=== PATIENT | male | born 1975 | race Caucasian/White ===

== ENCOUNTER 2020-05-28 02:26 | Observation (INO) | payer OTHER, MEDICAID, SELFPAY ==
[2020-05-28] VITALS (154 sets, daily range): BP systolic 77–223; BP diastolic 24–133; PULSE 54–121; RESP 0–26; TEMP 36–36.5; O2SAT 97–100
[2020-05-28] MEDS: Naloxone 0.4 MG/ML VIAL (02:14)
--- NOTE | 2020-05-28 02:15 | DI.CT_ITS ---
EXAM: CT CHEST/ABD/PEL W TECHNIQUE: CT examination of the chest, abdomen, and pelvis was performed with bolus infusion of 100 cc of Omnipaque 350. COMPARISON: No exams were available for comparison FINDINGS: There is no evidence of a thoracic vascular injury. The lungs are clear. No pneumothorax or pleural effusion. No mediastinal hematoma. No adenopathy in the chest. Tracheobronchial tree appears intact. The liver, spleen, and pancreas appear normal. Gallbladder and bile ducts are normal. Adrenals and kidneys are unremarkable. No evidence of urinary tract injury or obstruction. No abdominal or pelvic vascular injury seen. No abdominal or pelvic adenopathy. No significant abdomi nal wall hernia or hematoma. No evidence of bowel injury. IMPRESSION: No evidence of acute injury of the chest, abdomen, or pelvis. RADIATION DOSE DELIVERED: 1,300.97mGy.cm Total DLP 1,300.97mGy.cm Total DLP DATA REPOSITORY: All CT scans at this facility are submitted to the National Radiology Data Registry (NRDR) Dose Index Registry (DIR) with the [employer] ([employer]). RADIATION OPTIMIZATION: All CT scans at this facility use at least one of these dose optimization te chniques: automated exposure control; mA and/or kV adjustment per patient size (includes targeted exa ms where dose is matched to clinical indication); or iterative reconstruction.
--- NOTE | 2020-05-28 02:15 | DI.CT_ITS ---
EXAM: CT HEAD WO CLINICAL HISTORY: altered, gcs 4. TECHNIQUE: Imaging Protocol: Axial computed tomography images with coronal and sagittal reformatted images were created and reviewed COMPARISON: No exams were available for comparison FINDINGS: The ventricular system is normal in appearance. No evidence of acute intracranial hemorrhage, mass effect, or midline shift. The orbital structures are unremarkable. The temporal bone structures appear intact. Calvarium: Normal. Visualized Paranasal sinuses/Mastoids: Clear. IMPRESSION: Normal cranial CT. RADIATION DOSE DELIVERED: 788.54mGy.cm Total DLP 788.54mGy.cm Total DLP DATA REPOSITORY: All CT scans at this facility are submitted to the National Radiology Data Registry (NRDR) Dose Index Registry (DIR) with the [employer] ([employer]). RADIATION OPTIMIZATION: All CT scans at this facility use at least one of these dose optimization te chniques: automated exposure control; mA and/or kV adjustment per patient size (includes targeted exa ms where dose is matched to clinical indication); or iterative reconstruction.
--- NOTE | 2020-05-28 02:15 | RT.EKG_ITS ---
APPROVED REPORT Exam: Resting ECG Patient Location: E HR:105 bpm ECG Measurements Heart Rate 105 AXIS MS 138 P 69 QRSd 98 QRS 76 QT 346 T 54 QTc 457 Conclusion EKG 2: 55 Rate 105, sinus tachycardia, intervals normal, no significant ST elevations or depressions, no eviden ce of STEMI. No evidence of dysrhythmia or interval abnormality.
--- NOTE | 2020-05-28 02:15 | DI.RAD_ITS ---
EXAM: XR PORTABLE CHEST AP POST LINE CLINICAL HISTORY: post intubation TECHNIQUE: COMPARISON: No exams were available for comparison FINDINGS: Supine AP chest. 0237 hours. Endotracheal tube 6.5 cm above the reno. Grossly well expanded lai r lungs. Cardiac size within normal limits. IMPRESSION: RADIATION DOSE DELIVERED: Total DLP
[2020-05-28] MEDS: PROPOFOL 1,000 MG/100 ML BTL 11 MG (02:23)
[2020-05-28] MEDS: Normal Saline 1,000 ML 1000 ML IV (02:40)
--- NOTE | 2020-05-28 02:40 | NUR.NOTE ---
Nursing Note: Trauma Note: 0152 - arrived via [facility] 0159 - IV attempt x 2 0202 - IO Placed in right tibia 0206 - Patient placed in restraints 0210 - IV attempt x 1 0214 - Narcan 0.4 mg via IO 0215 - Etomidate 20 mg via IO 0216 - Rocurodium 100 mg via IO 0219 - Intubation successful, 22 j luis at the teeth 0221 - Propofol bolus 40 mg via IO 0223 - Propofol drip 25 mg via IO.
--- NOTE | 2020-05-28 02:44 | DI.VRAD_ITS ---
PROCEDURE INFORMATION: Exam: XR Chest, 1 View Exam date and time: 05/28/2020 2:36 AM Age: 44 years old Clinical indication: Device placement; Other: Post intubation TECHNIQUE: Imaging protocol: XR of the chest Views: 1 view. COMPARISON: No relevant prior studies available. FINDINGS: External pacing device noted. ETT tip 6.5 cm above the reno Lungs: Mild chronic interstitial prominence. No consolidation. Pleural space: Unremarkable. No pleural effusion. No pneumothorax. Heart/Mediastinum: Unremarkable. No cardiomegaly. Bones/joints: Unremarkable. IMPRESSION: No acute findings. Endotracheal tube tip 6.5 cm above the reno Dictated and Authenticated by: Clifford Blakely MD. Ordering:KAYCE Hammond MD
[2020-05-28] MEDS: PROPOFOL 1,000 MG/100 ML BTL 11.25 MG IVPB (02:47)
--- NOTE | 2020-05-28 02:57 | W.ED.GENAD ---
Discharge Plan Disposition Patient Disposition: [facility] INPATIENT Condition: Stable Discharge Details Chief Complaint: OD/Poison Clinical Impression: Altered mental status, Obtundation, Acute respiratory failure, Illicit drug use Primary Care Provider: None,None ED Provider: Manish Hall Medical Decision Making Upon my evaluation, this patient had a high probability of imminent or life-threatening deterioration, which required my direct attention, intervention, and personal management. I have personally provided 45 minutes of critical care time exclusive of time spent on separately billable procedures. Time includes review of laboratory data, radiology results, discussion with consultants, and monitoring for potential decompensation. Interventions were performed as documented. This is a 44-year-old male who is unknown to our emergency department. Initially he was brought in by EMS for evaluation of altered mental status at the [facility]. GCS was around 4 upon their arrival, limited respirations assisted by bag valve mask. He was brought in for further evaluation. Upon assessment here in the ED he was continued to noted to have a GCS of 4, painful stimuli including sternal rub, multiple other forms of painful stimuli did not evoke any movement or response whatsoever. Corneal reflex was intact. Respirations were present but notably slow. The patient did have an intermittent gag reflex, however he already had 1 episode of vomiting per EMS. Out of concern for his altered mental status, potential for airway compromise, and inability for good protection of the airway the decision was made to intubate the patient. Fortunately no IV could be established by paramedics or nursing staff secondary to what we now note to be the patient's history of IV drug use. An IO was placed, which elicited a notable response from the patient, he demonstrated notable flexion and extension without focal posturing, and nonsensical screams and noises. Patient continued to be unable to answer any questions, and there was no response to our verbal direction or stimuli whatsoever. Immediately once the IO was placed he rescinded back down to his GCS of 4. The patient was then successfully intubated with no complication or particular negative challenge. However post intubation the patient did demonstrate continued spontaneous but non-focus movements. Propofol, fentanyl, and Versed were used to maintain sedation. Neurologic exam is minimal but continued to demonstrate responsive pupils, intermittent movements, no nuchal rigidity, or other abnormality. Uncertain as to the exact etiology of the patient's symptoms however in hindsight we did eventually get records back from [facility], and upon review of the records it seems that the patient was arrested by [facility], and just immediately before rest he took an 8 ball and then during [facility] custody he transitioned from a normal communicative state to violent, flailing, and non-redirectable behavior. Patient was brought to [facility] where he was given IV IV benzodiazepines for management, eventually his symptomatology settled down after a notable amount of spitting thrashing and violent behavior. Laboratory work-up appears benign upon review aside from mild elevation in CPK in total he received 5 mg of midazolam and 2 mg of Ativan. He was then transferred back to the intermediate system, where there he was noted after he was brought back to a sound to be altered and obtunded. No further history is available at this time. Differential is broad, but includes intoxication from drugs, less likely bacterial or septic etiology, acute intercranial processes on the differential as well. EKG unremarkable and it appears unlikely to be associated with any overdose from TCAs. We will continue to rehydrate, monitor closely and reassess. 4 AM Skilled Nursing staff now state that patient may have had some seizure-like movement when he first came there. No history of seizures from what we can tell from review of [facility]'s records. However exam shows no tongue bite lesions or other abnormalities. 4:50 AM Laboratory work-up is returned relatively unremarkable, lactate is elevated but likely secondary to the stress of the situation, ESR and CRP are both normal notably decreasing likelihood of infectious etiology. Troponin is benign. TSH normal. Urine drug screen is positive for amphetamines and benzos. Alcohol negative. Salicylates and acetaminophen are negative. Uncertain to the exact etiology of the patient's current symptomatology. May be related to a potential seizure from what he previously ingested but I feel this less likely especially given all the benzodiazepines it was given to him at [facility]. Infectious etiology unlikely. CT scan of the head is negative for acute process, CT scan of the chest and abdomen are negative as well. At this point with the patient's altered mental status and obtundation we will keep the patient intubated, admit him to the ICU for further management. Currently he remains hemodynamically stable. I discussed the case with Dr. High, he will admit the patient for further management. I have extensively reviewed the treatment plan with the patient. I have addressed all patient concerns at this time. I have also discussed the plan with the admitting physician and they agree with the current assessment and plan and have agreed to assume responsibility for the patient. All parties demonstrate verbal understanding and agreement with our assessment and plan at this time. EKG 2: 55 Rate 105, sinus tachycardia, intervals normal, no significant ST elevations or depressions, no evidence of STEMI. No evidence of dysrhythmia or interval abnormality. FINDINGS: Brain: Mild volume loss No hemorrhage. Unremarkable white matter. No mass effect. Ventricles: Normal. No ventriculomegaly. Bones/joints: Unremarkable. No acute fracture. Sinuses: Minimal mucosal thickening. No fluid levels. Mastoid air cells: Visualized mastoid air cells are well aerated. Soft tissues: Mild right frontal scalp swelling IMPRESSION: No acute intracranial hemorrhage noted Thank you for allowing us to participate in the care of your patient. Dictated and Authenticated by: Clifford Blakely MD 05/28/2020 4:26 AM Eastern Time ([place] & [place]) FINDINGS: Endotracheal tube tip 6 cm above the reno Lungs: Minimal basilar subsegmental atelectasis. No consolidation. No masses. Pleural space: Unremarkable. No pneumothorax. No pleural effusion. Heart: Unremarkable. No cardiomegaly. No pericardial effusion. Aorta: Unremarkable. No aortic aneurysm. Lymph nodes: Unremarkable. No enlarged lymph nodes. Bones/joints: Unremarkable. No acute fracture. Soft tissues: Unremarkable. IMPRESSION: No acute findings. Endotracheal tube tip 6 cm above the reno IMPRESSION: No solid organ injury detected Thank you for allowing us to participate in the care of your patient. Dictated and Authenticated by: Clifford Blakely MD 05/28/2020 4:25 AM Eastern Time ([place] & [place]) HPI General Date/Time Provider Initiated Documentation: 05/28/20 02:40. HPI Narrative: 44-year-old male who presents from intermediate altered and obtunded via EMS. No medical history is available at this time. Per EMS and intermediate staff he was recently at [facility] earlier today where he was arrested on? Drug charges? Subsequently medically cleared, and upon arrival/intake to the intermediate he was alert, but notably drowsy. He was sent to his cell, and was found to be relatively unresponsive but breathing for around 30 minutes. EMS arrived, began bagging the patient, and brought him to the ER immediately. Patient unable to answer any other questions at this time. No other known medical history or clinical historical components. General Stated Complaint: OD/Poison FLOR: 1 Review of Systems All systems reviewed & are unremarkable except as noted in HPI and below [facility] Social History Smoking/Tobacco Use Status: Unknown Substance use type: amphetamines Exam Narrative Exam Narrative: 1.Const: Well-nourished, Well-developed, appearing stated age 2.Eyes: PERRL, no conjunctival injection, and symmetrical lids. No pinpoint pupils corneal reflex intact, 3.ENT: Atraumatic external nose and ears. Moist MM. Neck: Symmetric, trachea midline, No thyromegaly. No nuchal rigidity, or clinical evidence of meningismus. 4.CVS: +S1/S2, No murmurs or gallops. Peripheral pulses 2+ and equal in all extremities. Brisk capillary refill in all extremities. 5.RESP: Notably decreased respiratory effort, occasional intermittent breaths are noted,. Clear to auscultation bilaterally. No wheezes rales or rhonchi 6.GI: Soft, Nontender/Nondistended, No hepatosplenomegaly. No guarding or rebound. 7.MSK: Normocephalic/Atraumatic, Extremities w/o deformity or ttp No cyanosis or clubbing, Normal movement of all extremities 8.Skin: Warm, Dry. No rashes or lesions. 9.Neuro: Obtunded, notably nonresponsive to sternal rub, or any other stimuli except for intraosseous application. GCS is 5, with flexion to pain only, however occasionally he will make incomprehensible sounds which would elevate his GCS to a 6 intermittently. 10.Psych: (Altered, GCS of 5-6 Course Vital Signs Vital signs: Vital Signs Temperature 36.4 C L 05/28/20 02:30 Pulse 115 H 05/28/20 02:30 Respiratory Rate 14 05/28/20 02:30 Blood Pressure 195/107 H 05/28/20 02:30 Pulse Oximetry 99 05/28/20 02:30 Temperature 36.4 C L 05/28/20 02:30 Temperature Source Tympanic 05/28/20 02:30 Pulse 115 H 05/28/20 02:30 Respiratory Rate 14 05/28/20 02:30 Blood Pressure 195/107 H 05/28/20 02:30 Pulse Oximetry 99 05/28/20 02:30 End Tidal Co2 54 05/28/20 02:30 Pain Level 0 05/28/20 02:30 Lab/Test Results Lab/Test Results: 05/28/20 02:23 Blood Blood Culture - Pending 05/28/20 02:23 Blood Blood Culture - Pending Procedures Intubation Time out performed: Yes sedative: Etomidate Mg Given: 20 paralytic: Rocuronium Mg Given: 100 Laryngoscope: fiberoptic video scope ET Tube Size: 7.5 ET Tube Uncuffed: Yes Tube Secured Depth (cm): 22 Tube Secured Location: teeth Tube Placement Confirmation: visualized tube passing through cords, equal breath sounds bilaterally, no breath sounds over epigastrum and confirmation by capnometry Patient Tolerated Procedure: well Intubation Complications: none Restraint Face to Face Time of Face to Face Face to Face: Time of Face to Face: 02:29 Patient's Immediate Situation Requiring Restraints/Seclusion: Harm to Patient Patient Response to Restraints: Tolerating without Problems Patient's Medical & Behavioral Condition: With administration of medication through the IO patient would flail
[2020-05-28] MEDS: fentaNYL 1,000 MCG in Normal Saline 80 ML 7.5 MCG IV (03:00)
[2020-05-28 03:09] LABS: Abs Immature Grans 0.02 10^3/uL (0.0-0.06); Absolute Basophil Count 0.02 10^3/uL (0.0-0.2); Absolute Eosinophil Count 0.02 10^3/uL (0.0-0.7); Absolute Lymphocyte Count 1.46 10^3/uL (1.2-3.4); Absolute Monocyte Count 0.57 10^3/uL (0.1-0.8); Absolute Neutrophil Count 5.91 10^3/uL (1.2-6.7); Basophils % 0.3; Eosinophils % 0.3; HCT 42.9 % (40.0-50.0); HGB 14.3 g/dL (13.5-17.5); Immature Grans % 0.3; Lymphocytes % 18.3; MCH 29.7 pg (27.0-33.0); MCHC 33.3 % (32.0-36.0); MCV 89.2 fL (80-95); MPV 9.5 fL (8.0-11.0); Monocytes % 7.1; Neutrophils % 73.7; Nucleated RBC 0 %; Platelet Count 179 10^3/uL (130-400); RBC 4.81 10^6/uL (4.36-5.78); RDW-SD 42.5 fL
[2020-05-28] MEDS: MIDAZOLAM 50 MG in Normal Saline 90 ML 15 MG IV (03:22)
[2020-05-28 03:23] LABS: PTT Activated 23.4 sec (21.0-31.4); Prothrombin Time 10.2 sec (9.3-11.0)
[2020-05-28 03:25] LABS: BE 2 mmol/L (-2-3); HCO3 28 mmol/L (22-26); pCO2 49 mmHg (35-45); pH 7.36 (7.35-7.45)
[2020-05-28 03:27] LABS: FIO2 60 %; Site Right Radial; pO2 > 550 mmHg (80-105); sO2 > 99 % (95-98)
[2020-05-28] MEDS: Rocuronium 50 MG/5 ML SYR 100 MG IVP (03:34)
[2020-05-28 04:03] LABS: ESR 6 mm/hr (0-15)
[2020-05-28 04:05] LABS: Salicylate < 2.8 mg/dL (2.8-20.0)
[2020-05-28 04:06] LABS: Acetaminophen < 2 ug/mL (10-30)
[2020-05-28 04:08] LABS: ALT 69 U/L (16-63); AST 69 U/L (15-37); Albumin 4.1 g/dL (3.4-5.0); Alkaline Phosphatase 54 U/L (46-116); Anion Gap 8.2 mmol/L (3-11); BUN 20 mg/dL (7-18); Bilirubin, Total 0.7 mg/dL (0.2-1.0); C-Reactive Protein 0.17 mg/dL (0.0-0.3); CO2 28.8 mmol/L (21.0-32.0); CREATININE 1.05 mg/dL (0.70-1.30); Calcium 8.3 mg/dL (8.5-10.1); Chloride 102 mmol/L (98-107); Glucose 139 mg/dL (74-106); Potassium 3.6 mmol/L (3.5-5.1); Sodium 139 mmol/L (136-145); TSH (W/Ref FT4) 1.05 uIU/mL (0.36-3.74); Total Protein 7.7 g/dL (6.4-8.2); Troponin I < 0.05 ng/mL (<0.06)
[2020-05-28 04:20] LABS: ETHANOL BLOOD < 3.0 mg/dL (<3)
--- NOTE | 2020-05-28 04:25 | DI.VRAD_ITS ---
PROCEDURE INFORMATION: Exam: CT Chest With Contrast Exam date and time: 05/28/2020 3:54 AM Age: 44 years old Clinical indication: Screening exam; Other screening; Patient HX: Altered, inmate, question overdose TECHNIQUE: Imaging protocol: Computed tomography of the chest with intravenous contrast. COMPARISON: No relevant prior studies available. FINDINGS: Endotracheal tube tip 6 cm above the reno Lungs: Minimal basilar subsegmental atelectasis. No consolidation. No masses. Pleural space: Unremarkable. No pneumothorax. No pleural effusion. Heart: Unremarkable. No cardiomegaly. No pericardial effusion. Aorta: Unremarkable. No aortic aneurysm. Lymph nodes: Unremarkable. No enlarged lymph nodes. Bones/joints: Unremarkable. No acute fracture. Soft tissues: Unremarkable. IMPRESSION: No acute findings. Endotracheal tube tip 6 cm above the reno PROCEDURE INFORMATION: Exam: CT Abdomen And Pelvis With Contrast Exam date and time: 05/28/2020 3:54 AM Age: 44 years old Clinical indication: Screening exam; Other screening; Patient HX: Altered, inmate, question overdose TECHNIQUE: Imaging protocol: Computed tomography of the abdomen and pelvis with intravenous contrast. COMPARISON: No relevant prior studies available. FINDINGS: Liver: Normal. No mass. Gallbladder and bile ducts: Normal. No calcified stones. No ductal dilation. Pancreas: Normal. No ductal dilation. Spleen: Normal. No splenomegaly. Adrenals: Normal. No mass. Kidneys and ureters: Normal. No hydronephrosis. Stomach and bowel: Unremarkable. No obstruction. No mucosal thickening. Appendix: No evidence of appendicitis. Intraperitoneal space: Unremarkable. No free air. No significant fluid collection. Vasculature: Unremarkable. No abdominal aortic aneurysm. Lymph nodes: Unremarkable. No enlarged lymph nodes. Bladder: Unremarkable as visualized. Reproductive: Unremarkable as visualized. Bones/joints: Unremarkable. No acute fracture. Soft tissues: Unremarkable. IMPRESSION: No solid organ injury detected Dictated and Authenticated by: Clifford Blakely MD. Ordering:KAYCE Hammond MD
--- NOTE | 2020-05-28 04:26 | DI.VRAD_ITS ---
PROCEDURE INFORMATION: Exam: CT Head Without Contrast Exam date and time: 05/28/2020 3:51 AM Age: 44 years old Clinical indication: Screening exam; Patient HX: Altered, gcs 4 TECHNIQUE: Imaging protocol: Computed tomography of the head without contrast. COMPARISON: No relevant prior studies available. FINDINGS: Brain: Mild volume loss No hemorrhage. Unremarkable white matter. No mass effect. Ventricles: Normal. No ventriculomegaly. Bones/joints: Unremarkable. No acute fracture. Sinuses: Minimal mucosal thickening. No fluid levels. Mastoid air cells: Visualized mastoid air cells are well aerated. Soft tissues: Mild right frontal scalp swelling IMPRESSION: No acute intracranial hemorrhage noted Dictated and Authenticated by: Clifford Blakely MD. Ordering:KAYCE Hammond MD
[2020-05-28 04:28] LABS: Bilirubin Negative (Negative); Blood Negative (Negative); Clarity Clear (Clear); Glucose Negative (Negative); Ketones 15 mg/dL (Negative); Leukocyte Esterase Negative (Negative); Nitrite Negative (Negative); Specific Gravity 1.025 (1.005-1.025); Urobilinogen 0.2 EU/dL (Up TO 0.2)
[2020-05-28 04:38] LABS: *AMPHETAMINES SCREEN URINE POSITIVE (Negative); *BARBITURATES SCREEN URINE Negative (Negative); *BENZODIAZEPINES SCREEN URINE POSITIVE (Negative); Cannabinoids THC Negative (Negative); Cocaine Screen,Urine Negative (Negative); METHADONE URINE SCREEN Negative (Negative); OPIATES URINE SCREEN Negative (Negative); Tricyclic Antidepressants Negative (Negative)
--- NOTE | 2020-05-28 04:46 | DI.RAD_ITS ---
EXAM: XR PORTABLE CHEST AP POST LINE CLINICAL HISTORY: for OG tube placement TECHNIQUE: COMPARISON: CR,XR XR PORTABLE CHEST AP POST LINE from 05/28/2020 FINDINGS: Supine AP chest at 0450 hours. NG tube noted in position. ET tube noted in position. Lungs are caryn ssly clear and well expanded. Cardiac size within normal limits. IMPRESSION: No evidence of acute process RADIATION DOSE DELIVERED: Total DLP
--- NOTE | 2020-05-28 04:58 | W.PM.HP.N ---
Date of service: 05/28/20 Time of Service: 04:58 Assessment and Plan Assessment and plan (1) Altered mental status: Status: Acute Assessment and plan: AMS due to some combination of drug ingestion, med side effects, possible post-ictal state (given report of possible seizure). No evidence of structural or infectious lesion. Will maintain on vent at present with current sedation regimen. Will taper down as clinical situation allows. Will decrease FIO2 <50%. History of Present Illness History of Present Illness Chief Complaint: change mental status Narrative: 44 male with h/o substance abuse; arrested by [facility] earlier. Took so called 8 ball, seen [facility] for agitated/violent behavior; given benzos and eventually d/c'ed to custodial. In [facility] became progressively obtunded, question of possible seizure activity, brought here; vomited x1 en route; in ER intubated for airway protection. Please see ER note for further details. Labs of note for normal CBC, benign chemistries save for minimal increase TAs; neg head CT and CXR, with ET tube in place; UDS + benzos and amphetamines; EKG unremarkable save for sinus tach. Sedated with propofol, versed and fentanyl qtts Admitted for further management. Review of Systems Unobtainable due to mental status [facility] Social History Smoking/Tobacco Use Status: Unknown Substance use type: amphetamines Meds Home Medications and Allergies Home Medications Medication Instructions Recorded Confirmed Type Unknown [Unable to Obtain] 05/28/20 05/28/20 History Allergies Allergy/AdvReac Type Severity Reaction Status Date / Time Unable to Assess Allergy Unverified 05/28/20 05:16 Exam Narrative Exam Narrative: 141/93, 78, 36.4, 16 (IMV), 99% on 60% O2. HEENT atraumatic; neck supple; lungs clear, bilateral breath sounds; heart RRR w/o MRG; abdomen soft w/o HSM and nontender; unremarkable; rectal deferred; extremikties w/o edema, IO line on right; neuro unresponsive/ sedated Results Labs Result diagrams: 05/28/20 03:00 05/28/20 03:00 Labs: Laboratory Results - last 24 hr 05/28/20 05/28/20 05/28/20 03:00 03:00 03:00 WBC RBC Hgb Hct MCV MCH MCHC RDW Plt Count MPV Immature Gran % Neutrophils % Lymphocytes % Monocytes % Eosinophils % Basophils % Nucleated RBC % Absolute Neutrophils Absolute Lymphocytes Absolute Monocytes Absolute Eosinophils Absolute Basophils ESR PT INR APTT ABG Sample Site ABG pH ABG pCO2 ABG pO2 ABG HCO3 ABG Total CO2 ABG O2 Saturation ABG Base Excess Oxygen Liter Flow FiO2 Sodium 139 Potassium 3.6 Chloride 102 Carbon Dioxide 28.8 Anion Gap 8.2 BUN 20 H Creatinine 1.05 Estimated GFR/1.73 m2 >= 60.00 Glucose 139 H Lactate 2.6 H* Calcium 8.3 L Total Bilirubin 0.7 AST 69 H ALT 69 H Alkaline Phosphatase 54 Troponin I < 0.05 C-Reactive Protein 0.17 Total Protein 7.7 Albumin 4.1 TSH 1.05 Urine Color Urine Clarity Urine pH Ur Specific Milroy Urine Protein Urine Ketones Urine Blood Urine Nitrite Urine Bilirubin Urine Urobilinogen Ur Leukocyte Esterase Urine Glucose Salicylates < 2.8 Urine Opiates Screen Urine Methadone Screen Acetaminophen < 2 Ur Barbiturates Screen Ur Tricyclics Screen Ur Amphetamines Screen U Benzodiazepines Scrn Urine Cocaine Screen Ur THC Screen Ethyl Alcohol < 3.0 05/28/20 05/28/20 05/28/20 03:00 03:00 03:20 WBC 8.00 RBC 4.81 Hgb 14.3 Hct 42.9 MCV 89.2 MCH 29.7 MCHC 33.3 RDW 13.0 Plt Count 179 MPV 9.5 Immature Gran % 0.3 Neutrophils % 73.7 Lymphocytes % 18.3 Monocytes % 7.1 Eosinophils % 0.3 Basophils % 0.3 Nucleated RBC % 0 Absolute Neutrophils 5.91 Absolute Lymphocytes 1.46 Absolute Monocytes 0.57 Absolute Eosinophils 0.02 Absolute Basophils 0.02 ESR 6 PT 10.2 INR 1.0 APTT 23.4 ABG Sample Site Right radial ABG pH 7.36 ABG pCO2 49 H ABG pO2 > 550 H ABG HCO3 28 H ABG Total CO2 ABG O2 Saturation > 99 H ABG Base Excess 2 Oxygen Liter Flow Vt470/peep5/r15 FiO2 60 Sodium Potassium Chloride Carbon Dioxide Anion Gap BUN Creatinine Estimated GFR/1.73 m2 Glucose Lactate Calcium Total Bilirubin AST ALT Alkaline Phosphatase Troponin I C-Reactive Protein Total Protein Albumin TSH Urine Color Urine Clarity Urine pH Ur Specific Milroy Urine Protein Urine Ketones Urine Blood Urine Nitrite Urine Bilirubin Urine Urobilinogen Ur Leukocyte Esterase Urine Glucose Salicylates Urine Opiates Screen Urine Methadone Screen Acetaminophen Ur Barbiturates Screen Ur Tricyclics Screen Ur Amphetamines Screen U Benzodiazepines Scrn Urine Cocaine Screen Ur THC Screen Ethyl Alcohol 05/28/20 05/28/20 04:21 04:21 WBC RBC Hgb Hct MCV MCH MCHC RDW Plt Count MPV Immature Gran % Neutrophils % Lymphocytes % Monocytes % Eosinophils % Basophils % Nucleated RBC % Absolute Neutrophils Absolute Lymphocytes Absolute Monocytes Absolute Eosinophils Absolute Basophils ESR PT INR APTT ABG Sample Site ABG pH ABG pCO2 ABG pO2 ABG HCO3 ABG Total CO2 ABG O2 Saturation ABG Base Excess Oxygen Liter Flow FiO2 Sodium Potassium Chloride Carbon Dioxide Anion Gap BUN Creatinine Estimated GFR/1.73 m2 Glucose Lactate Calcium Total Bilirubin AST ALT Alkaline Phosphatase Troponin I C-Reactive Protein Total Protein Albumin TSH Urine Color Yellow Urine Clarity Clear Urine pH 7.0 Ur Specific Milroy 1.025 Urine Protein 30 H Urine Ketones 15 H Urine Blood Negative Urine Nitrite Negative Urine Bilirubin Negative Urine Urobilinogen 0.2 Ur Leukocyte Esterase Negative Urine Glucose Negative Salicylates Urine Opiates Screen Negative Urine Methadone Screen Negative Acetaminophen Ur Barbiturates Screen Negative Ur Tricyclics Screen Negative Ur Amphetamines Screen Positive A U Benzodiazepines Scrn Positive A Urine Cocaine Screen Negative Ur THC Screen Negative Ethyl Alcohol Last Vital Signs Temp 36.4 C L 05/28/20 02:30 Pulse 71 05/28/20 04:31 Resp 16 05/28/20 04:41 BP 141/93 H 05/28/20 04:31 Pulse Ox 99 05/28/20 04:40
--- NOTE | 2020-05-28 05:05 | DI.VRAD_ITS ---
PROCEDURE INFORMATION: Exam: XR Chest, 1 View Exam date and time: 05/28/2020 4:55 AM Age: 44 years old Clinical indication: Device placement; Patient HX: For og tube placement TECHNIQUE: Imaging protocol: XR of the chest Views: 1 view. COMPARISON: CT CHEST/ABD/PEL W 05/28/2020 3:54 AM FINDINGS: Endotracheal tube tip 7 cm above the reno Orogastric tube in the proximal gastric fundus/cardia External pacing device noted Lungs: Chronic interstitial prominence is grossly stable. No consolidation. Pleural space: No pleural effusion. No pneumothorax. Heart/Mediastinum: Grossly stable. Bones/joints: Unremarkable. IMPRESSION: Orogastric tube in the proximal stomach Otherwise, grossly stable radiographic appearance to the chest Dictated and Authenticated by: Clifford Blakely MD. Ordering:KAYCE Hammond MD
[2020-05-28 05:09] LABS: Bacteria Negative HPF (Negative); Crystals Negative HPF (Negative); Epithelial Cells Negative HPF (Negative); RBC Negative HPF (0-2); WBC 0-2 HPF (0-5)
[2020-05-28 05:10] LABS: C & S Indicated? No; Mucus Trace (Negative)
[2020-05-28] MEDS: PROPOFOL 1,000 MG/100 ML BTL 45 MG IVPB (06:59)
[2020-05-28] MEDS: MIDAZOLAM 50 MG in Normal Saline 90 ML 30 MG IV (07:15)
[2020-05-28] MEDS: MIDAZOLAM 50 MG in Normal Saline 90 ML 200 MG IV (07:24)
[2020-05-28] MEDS: fentaNYL 1,000 MCG in Normal Saline 80 ML 22.5 MCG IV (08:31)
--- NOTE | 2020-05-28 09:00 | PGE_ITS ---
Date of Service Date of service: 05/28/20 Time of Service: 09:00 Assessment and Plan Assessment and plan (1) Altered mental status: Status: Acute Assessment and plan: Altered mental status secondary to drug overdose along with high dose narcotic and benzodiazepine infusion. We will start Precedex drip and wean off the propofol drip. Goal will be to wean off the Precedex over the next 24 hours with a goal to extubate the patient. Continue supportive care in the interim. Qualifiers: Coma depth: Skinny coma 3-8 Coma timing: at hospital admission (2) Acute respiratory failure: Status: Acute Assessment and plan: Patient's acute respiratory failure is secondary to his drug overdose and his high need for sedation in the emergency department. We will wean off the propofol drip and start Precedex as noted above. There is no evidence for aspiration on his chest x-ray. Will monitor for any signs or symptoms of respiratory infection. Qualifiers: Respiratory failure complication: unspecified whether with hypoxia or hypercapnia Qualified Code(s): J96.00 - Acute respiratory failure, unspecified whether with hypoxia or hypercapnia (3) Illicit drug use: Status: Acute (4) Rhabdomyolysis: Status: Acute Assessment and plan: Creatine kinase was not checked last night but I ordered a stat level this morning and came back elevated at 1785. Patient is receiving IV fluids of normal saline 150 mL an hour. We will continue aggressive fluid hydration and monitor his renal function. Patient has a Meyer catheter is draining adequate amount of urine output. Subjective Subjective Interval history since last seen: Please see Dr. Manish Hall's emergency room notes as well as Dr. Raffy High's admission H&P for details. From my review of their notes as well as my interview with the corrections officers from [facility] police patient apparently was arrested on domestic violence charges in [place], [place] and shortly after his arrest the patient took an overdose with what is known as an 8 ball. This is a slang term for combination usually of cocaine and other substances however in this gentleman's case his urine drug screen was negative for cocaine but positive for amphetamines. Shortly after taking this overdose the patient became violently agitated and required emergency evaluation. Patient reportedly was taken to the emergency room at [facility] where he was treated with benzodiazepines to sedate him. Is unclear as to the timing of when he was arrested and when he was taken to [facility] as well as to the exact treatment he was given. Nevertheless he apparently was felt to be medically stable and was cleared for discharge from the emergency room and then was taken to [facility] to the [facility] correctional facility. Patient was there for a short time approximately 30 minutes and placed in a dry cell where he was observed and became somnolent and unresponsive. Apparently there was no loss of pulse or respirations although his respirations were shallow and EMS was called. Patient was given Narcan which had no effect on his responsiveness. He was brought to the emergency room where he was given further Narcan and attempts at resuscitation necessitated intubation and protection of his airway. Apparently at some point in time in our emergency room he became very agitated and required high-dose sedation. Upon my assumption of the patient's care this morning remains intubated and severely sedated. According to the day nurse he was on a Versed drip 200 Micrograms per kilogram per hour and was on a dipper Van drip at 111 mcg/kg/min and a fentanyl drip at 3 mcg/kg/h. His nurses since discontinued the Versed drip in the fentanyl drip and the patient remains on a dipper Van drip at 45 mcg/kg/min. Patient remains severely obtunded and not even arousable to noxious stimulation such as sternal rub. Blood pressures were a little on the lower side throughout the night in the 90s systolic but he is now 107/67. Rhythm is sinus rhythm rate of 67 bpm and his oxygen saturation is 100% on FiO2 21%. He is on assist control with a tidal volume of 470 mL and respiratory rate set at 15. PEEP is 5 cm. He does not appear to be breathing above the ventilator set rate. He has 1 peripheral IV insight and he has an intraosseous line in his right tibia. I have asked nursing staff to achieve a second peripheral line so we can remove the intraosseous line. If they are unable to get a second peripheral IV then either I would place a central line or ask surgery to place central line for me. This time the goal is to try to wean him off the propofol drip and put him on a Precedex drip and to sedate him to a RASS scale -1 working towards extubation in the next 24 hours. Exam Narrative Exam Narrative: Obtunded not responsive to noxious stimuli. HEENT is atraumatic dry mucous membranes. Pupils midpoint reactive. Neck supple nontender palpation of the cervical spine no cervical adenopathy normal carotid pulses no bruising. Lungs are clear to auscultation Heart is regular rate and rhythm without murmur rub or gallop. Chest wall no deformities normal palpation of his ribs and sternum. Extremities he has tattoos on both arms. No visible bruising no lacerations. Lower extremities right tibia with IO device in place. No lacerations no deformities. Normal pedal pulses Neurologic exam obtunded not responsive to noxious stimulation. Objective Objective Clinical Data: Abnormal lab results 05/28/20 05/28/20 05/28/20 Range/Units 03:00 03:00 03:20 ABG pCO2 49 H (35-45) mmHg ABG pO2 > 550 H (80-105) mmHg ABG HCO3 28 H (22-26) mmol/L ABG O2 Saturation > 99 H (95-98) % BUN 20 H (7-18) mg/dL Glucose 139 H (74-106) mg/dL Lactate 2.6 H* (0.6-1.4) mmol/L Calcium 8.3 L (8.5-10.1) mg/dL AST 69 H (15-37) U/L ALT 69 H (16-63) U/L Urine Protein (Negative) mg/dL Urine Ketones (Negative) mg/dL Ur Amphetamines Screen (Negative) U Benzodiazepines Scrn (Negative) 05/28/20 05/28/20 Range/Units 04:21 04:21 ABG pCO2 (35-45) mmHg ABG pO2 (80-105) mmHg ABG HCO3 (22-26) mmol/L ABG O2 Saturation (95-98) % BUN (7-18) mg/dL Glucose (74-106) mg/dL Lactate (0.6-1.4) mmol/L Calcium (8.5-10.1) mg/dL AST (15-37) U/L ALT (16-63) U/L Urine Protein 30 H (Negative) mg/dL Urine Ketones 15 H (Negative) mg/dL Ur Amphetamines Screen Positive A (Negative) U Benzodiazepines Scrn Positive A (Negative) Vital Signs Temperature 36.5 C 05/28/20 06:36 Temperature Source Temporal Artery Scan 05/28/20 06:36 Pulse 85 05/28/20 06:36 Pulse 74 05/28/20 05:31 Respiratory Rate 15 05/28/20 06:36 Respiratory Effort 05/28/20 06:36 Blood Pressure 100/74 05/28/20 06:36 Blood Pressure Mean 82 05/28/20 06:36 Blood Pressure Position Supine 05/28/20 06:36 Pulse Oximetry 100 05/28/20 06:36 Respiratory End-tidal CO2 35 05/28/20 06:13 Oxygen Delivery Method Mechanical Ventilator 05/28/20 06:36 Oxygen Flow Rate 0 05/28/20 06:36 Fraction of Inspired Oxygen (FIO2) 21 05/28/20 06:36 End Tidal Co2 54 05/28/20 02:30 Pain Level 0 05/28/20 06:36 Intake & Output 05/27/20 05/27/20 05/28/20 11:59 23:59 11:59 Intake Total 337.750 / 337.750 Balance 337.750 / 337.750 Weight 75 kg Intake: IV 337.750 / 337.750 Other: Urine Color Yellow Urine Appearance Clear Comment intubated and sedated Laboratory Results WBC 8.00 10^3/uL (4.4-10.8) 05/28/20 03:00 RBC 4.81 10^6/uL (4.36-5.78) 05/28/20 03:00 Hgb 14.3 g/dL (13.5-17.5) 05/28/20 03:00 Hct 42.9 % (40.0-50.0) 05/28/20 03:00 MCV 89.2 fL (80-95) 05/28/20 03:00 MCH 29.7 pg (27.0-33.0) 05/28/20 03:00 MCHC 33.3 % (32.0-36.0) 05/28/20 03:00 RDW 13.0 % (11.8-14.1) 05/28/20 03:00 Plt Count 179 10^3/uL (130-400) 05/28/20 03:00 MPV 9.5 fL (8.0-11.0) 05/28/20 03:00 Immature Gran % 0.3 05/28/20 03:00 Neutrophils % 73.7 05/28/20 03:00 Lymphocytes % 18.3 05/28/20 03:00 Monocytes % 7.1 05/28/20 03:00 Eosinophils % 0.3 05/28/20 03:00 Basophils % 0.3 05/28/20 03:00 Nucleated RBC % 0 % 05/28/20 03:00 Absolute Neutrophils 5.91 10^3/uL (1.2-6.7) 05/28/20 03:00 Absolute Lymphocytes 1.46 10^3/uL (1.2-3.4) 05/28/20 03:00 Absolute Monocytes 0.57 10^3/uL (0.1-0.8) 05/28/20 03:00 Absolute Eosinophils 0.02 10^3/uL (0.0-0.7) 05/28/20 03:00 Absolute Basophils 0.02 10^3/uL (0.0-0.2) 05/28/20 03:00 ESR 6 mm/hr (0-15) 05/28/20 03:00 PT 10.2 sec (9.3-11.0) 05/28/20 03:00 INR 1.0 (0.9-1.1) 05/28/20 03:00 APTT 23.4 sec (21.0-31.4) 05/28/20 03:00 ABG Sample Site Right radial 05/28/20 03:20 ABG pH 7.36 (7.35-7.45) 05/28/20 03:20 ABG pCO2 49 mmHg (35-45) H 05/28/20 03:20 ABG pO2 > 550 mmHg (80-105) H 05/28/20 03:20 ABG HCO3 28 mmol/L (22-26) H 05/28/20 03:20 ABG Total CO2 mmol/L (23-27) 05/28/20 03:20 ABG O2 Saturation > 99 % (95-98) H 05/28/20 03:20 ABG Base Excess 2 mmol/L (-2-3) 05/28/20 03:20 Oxygen Liter Flow Vt470/peep5/r15 L 05/28/20 03:20 FiO2 60 % 05/28/20 03:20 Sodium 139 mmol/L (136-145) 05/28/20 03:00 Potassium 3.6 mmol/L (3.5-5.1) 05/28/20 03:00 Chloride 102 mmol/L (98-107) 05/28/20 03:00 Carbon Dioxide 28.8 mmol/L (21.0-32.0) 05/28/20 03:00 Anion Gap 8.2 mmol/L (3-11) 05/28/20 03:00 BUN 20 mg/dL (7-18) H 05/28/20 03:00 Creatinine 1.05 mg/dL (0.70-1.30) 05/28/20 03:00 Estimated GFR/1.73 m2 >= 60.00 (mL/min/1.73m2) 05/28/20 03:00 Glucose 139 mg/dL (74-106) H 05/28/20 03:00 Lactate 1.0 mmol/L (0.6-1.4) 05/28/20 08:38 Calcium 8.3 mg/dL (8.5-10.1) L 05/28/20 03:00 Total Bilirubin 0.7 mg/dL (0.2-1.0) 05/28/20 03:00 AST 69 U/L (15-37) H 05/28/20 03:00 ALT 69 U/L (16-63) H 05/28/20 03:00 Alkaline Phosphatase 54 U/L (46-116) 05/28/20 03:00 Troponin I < 0.05 ng/mL (<0.06) 05/28/20 03:00 C-Reactive Protein 0.17 mg/dL (0.0-0.3) 05/28/20 03:00 Total Protein 7.7 g/dL (6.4-8.2) 05/28/20 03:00 Albumin 4.1 g/dL (3.4-5.0) 05/28/20 03:00 TSH 1.05 uIU/mL (0.36-3.74) 05/28/20 03:00 Urine Color Yellow (Yellow) 05/28/20 04:21 Urine Clarity Clear (Clear) 05/28/20 04:21 Urine pH 7.0 (5-8) 05/28/20 04:21 Ur Specific Benedict 1.025 (1.005-1.025) 05/28/20 04:21 Urine Protein 30 mg/dL (Negative) H 05/28/20 04:21 Urine Ketones 15 mg/dL (Negative) H 05/28/20 04:21 Urine Blood Negative (Negative) 05/28/20 04:21 Urine Nitrite Negative (Negative) 05/28/20 04:21 Urine Bilirubin Negative (Negative) 05/28/20 04:21 Urine Urobilinogen 0.2 EU/dL (Up TO 0.2) 05/28/20 04:21 Ur Leukocyte Esterase Negative (Negative) 05/28/20 04:21 Urine RBC Negative HPF (0-2) 05/28/20 04:21 Urine WBC 0-2 HPF (0-5) 05/28/20 04:21 Ur Epithelial Cells Negative HPF (Negative) 05/28/20 04:21 Urine Crystals Negative HPF (Negative) 05/28/20 04:21 Urine Bacteria Negative HPF (Negative) 05/28/20 04:21 Urine Mucus Trace (Negative) 05/28/20 04:21 Ur Culture Indicated? No 05/28/20 04:21 Urine Glucose Negative mg/dL (Negative) 05/28/20 04:21 Salicylates < 2.8 mg/dL (2.8-20.0) 05/28/20 03:00 Urine Opiates Screen Negative (Negative) 05/28/20 04:21 Urine Methadone Screen Negative (Negative) 05/28/20 04:21 Acetaminophen < 2 ug/mL (10-30) 05/28/20 03:00 Ur Barbiturates Screen Negative (Negative) 05/28/20 04:21 Ur Tricyclics Screen Negative (Negative) 05/28/20 04:21 Ur Amphetamines Screen Positive (Negative) A 05/28/20 04:21 U Benzodiazepines Scrn Positive (Negative) A 05/28/20 04:21 Urine Cocaine Screen Negative (Negative) 05/28/20 04:21 Ur THC Screen Negative (Negative) 05/28/20 04:21 Ethyl Alcohol < 3.0 mg/dL (<3) 05/28/20 03:00
[2020-05-28 09:07] LABS: BE 1 mmol/L (-2-3); HCO3 26 mmol/L (22-26); pCO2 41 mmHg (35-45); pH 7.41 (7.35-7.45); pO2 97 mmHg (80-105); sO2 98 % (95-98); tCO2 23 mmol/L (23-27)
[2020-05-28 09:10] LABS: Site Right Radial
[2020-05-28] MEDS: Normal Saline 1,000 ML 150 ML IV ×2 (09:10→15:16)
[2020-05-28 09:11] LABS: Anion Gap 8.5 mmol/L (3-11); BUN 21 mg/dL (7-18); CO2 27.5 mmol/L (21.0-32.0); CREATININE 0.84 mg/dL (0.70-1.30); Calcium 8.5 mg/dL (8.5-10.1); Chloride 102 mmol/L (98-107); Glucose 99 mg/dL (74-106); Potassium 3.6 mmol/L (3.5-5.1); Sodium 138 mmol/L (136-145)
[2020-05-28 09:11] LABS: FIO2 21 %
--- NOTE | 2020-05-28 09:17 | INITIAL_ITS ---
- If Service Date Differs Date of service: 05/28/20 Time of Service: 09:17 Care Management Initial Assess REASON FOR HOSPITALIZATION:: Altered Mental Status, Drug OD PAST MEDICAL HISTORY/PAST SURGICAL HISTORY:: Medical History. Altered mental status, obtundation, acute respiratory failure, illicit drug use. PREVIOUS FUNCTIONAL STATUS/SOCIAL/FAMILY SUPPORTS:: Fahad is currently in custody at the [facility]. No further information is available as Fahad is intubated, and no contact is listed. CURRENT FUNCTIONAL STATUS:: Fahad is currently intubated to protect his airway. Per report, his acute respiratory failure is secondary to his drug overdose. He is being cared for in the ICU, with two guards by his side at all times. ADVANCE DIRECTIVES:: None on file. Has patient been provided with info about the portal/API?: No Did the patient sign up for the portal?: No CODE STATUS:: Full Code INSURANCE COVERAGE / FINANCIAL ISSUES:: [facility] PRIMARY CARE PHYSICIAN:: No PCP on file. POTENTIAL DISCHARGE NEEDS:: Evaluations for further needs, follow up appointments PATIENT/FAMILY EDUCATION NEEDS:: Review discharge instructions with pt and staff at [facility], discussion of self care needs including ask me three. ANTICIPATED BARRIERS TO DISCHARGE:: None identified at this time. TRANSPORTATION:: Anticipate police transport back to [facility]. PLAN:: Anticipate Fahad will [facility] once medica lly cleared. He will be transported by police/workforce specialist. He will follow up with his discharge plan of care. CM will continue to follow.
[2020-05-28 09:23] LABS: Troponin I 0.07 ng/mL (<0.06)
[2020-05-28 09:25] LABS: Creatine Kinase 1785 U/L (39-308)
[2020-05-28] MEDS: PROPOFOL 1,000 MG/100 ML BTL 20.25 MG IVPB ×2 (10:03→10:45)
[2020-05-28 12:32] LABS: Troponin I 0.07 ng/mL (<0.06)
[2020-05-28] MEDS: Normal Saline Flush 10 ML SYR IVP ×2 (14:50→19:24)
[2020-05-28 15:21] LABS: Anion Gap 5.2 mmol/L (3-11); BUN 22 mg/dL (7-18); CO2 31.8 mmol/L (21.0-32.0); CREATININE 1.02 mg/dL (0.70-1.30); Calcium 8.1 mg/dL (8.5-10.1); Chloride 104 mmol/L (98-107); Glucose 72 mg/dL (74-106); Potassium 3.1 mmol/L (3.5-5.1); Sodium 141 mmol/L (136-145)
[2020-05-28 15:24] LABS: Creatine Kinase 1218 U/L (39-308)
[2020-05-28] MEDS: PROPOFOL 1,000 MG/100 ML BTL 36 MG IVPB ×2 (15:45→19:25)
[2020-05-28] MEDS: POTASSIUM CHLORIDE/0.9% NACL 1,000 ML 250 MEQ IV ×3 (15:58→23:02)
--- NOTE | 2020-05-28 16:59 | NUR.NOTE ---
prior shift reports [place]
[2020-05-28] MEDS: Normal Saline 500 ML IV (17:45)
[2020-05-28] MEDS: Pantoprazole 40 MG VIAL IVP (19:25)
[2020-05-28 20:55] LABS: COVID-19 RT-PCR UVMMC Result Negative (Negative)
[2020-05-28] MEDS: PROPOFOL 1,000 MG/100 ML BTL 33.75 MG IVPB (22:28)
--- NOTE | 2020-05-28 22:33 | NUR.NOTE ---
Attempted to titrated down the propofol several time w/o success. Pt became sitressed sitting up in bed attepted to chew thru/rip out his ett. increases in precedex causing increased hypotension in low urine output. propofol adjusted to 75 and pt wakes to repositioning and oral care but falls back to sleep withing a few mins w/reassurance
[2020-05-29] VITALS (65 sets, daily range): BP systolic 76–149; BP diastolic 49–111; PULSE 50–126; RESP 13–35; TEMP 36.3–37.2; O2SAT 93–100
[2020-05-29] MEDS: PROPOFOL 1,000 MG/100 ML BTL 33.75 MG IVPB (02:05)
[2020-05-29] MEDS: POTASSIUM CHLORIDE/0.9% NACL 1,000 ML 250 MEQ IV ×3 (04:15→12:40)
[2020-05-29 07:18] LABS: HCT 38.3 % (40.0-50.0); HGB 12.5 g/dL (13.5-17.5); MCH 29.8 pg (27.0-33.0); MCHC 32.6 % (32.0-36.0); MCV 91.2 fL (80-95); RDW 13.6 % (11.8-14.1); RDW-SD 45.7 fL; WBC 5.97 10^3/uL (4.4-10.8)
[2020-05-29 07:33] LABS: Anion Gap 8.4 mmol/L (3-11); BUN 20 mg/dL (7-18); CO2 22.6 mmol/L (21.0-32.0); CREATININE 0.72 mg/dL (0.70-1.30); Calcium 7.3 mg/dL (8.5-10.1); Chloride 110 mmol/L (98-107); Creatine Kinase 700 U/L (39-308); Glucose 79 mg/dL (74-106); Sodium 141 mmol/L (136-145)
[2020-05-29 07:38] LABS: Platelet Count 132 10^3/uL (130-400)
[2020-05-29] MEDS: Enoxaparin 40 MG/0.4 ML SYR SC (08:44)
--- NOTE | 2020-05-29 08:50 | PDOC.CMPRO ---
- If Service Date Differs Date of service: 05/29/20 Time of Service: 08:50 Care Management Progress Note S/O:Fahad is now extubated, he awoke confused about location and why he was in the custody of DOC and in the hospital. When Fahad is medically clear he will return to the correctional facility with the guards present in the room. A:Fahad is a 44 year old male admitted for drug overdose and change in mental status P:Fahad will return to the custody of department of corrections at time of discharge.
--- NOTE | 2020-05-29 08:51 | NUR.NOTE ---
0715 propofol and precedex decreased by half- preparing pt for extubation, Dr. Bautista in at 0725 and gave ok for extubation. See order. 0730 Propofol and precedex stopped. Pt starting to high pressure vent and move purposefully. RT notified to prepare for extubation. 0740 Pt successfully extubated to RA, sats 97-100%. Restraints remain on at this time, pt not fully aware of surroundings and will tug at bright catheter. Guards x2 remain at bedside continuously.
[2020-05-29 09:57] LABS: Lactate 2.6 mmol/L (0.6-1.4)
--- NOTE | 2020-05-29 12:03 | PGE_ITS ---
Date of Service Date of service: 05/29/20 Time of Service: 12:04 Assessment and Plan Assessment and plan (1) Altered mental status: Status: Resolved Assessment and plan: Altered mental status secondary to drug overdose along with high dose narcotic and benzodiazepine infusion. Now resolved. Qualifiers: Coma depth: Skinny coma 3-8 Coma timing: at hospital admission (2) Acute respiratory failure: Status: Resolved Assessment and plan: Doing well post extubation other than some hoarseness. No hypoxemia or hypercarbia issues. Qualifiers: Respiratory failure complication: unspecified whether with hypoxia or hypercapnia Qualified Code(s): J96.00 - Acute respiratory failure, unspecified whether with hypoxia or hypercapnia (3) Illicit drug use: Status: Acute (4) Rhabdomyolysis: Status: Acute Assessment and plan: Improving. I think that his CK is down enough that he should not require further hospitalization for iv fluids. Subjective Subjective Interval history since last seen: Patient's respiratory status remained stable overnight. He was weaned off his propofol and precedex drip this morning and was successfully extubated. He is awake but somewhat in a post anaesthetic delirium. He became violent when he was aroused by sternal rub this morning by nursing. He is now becoming more oriented and learning that he was arrested and brought to the hospital after overdosing on methamphetamines. His labs show that he has stable renal function and his rhabdomyolysis is recovering (CK peak was 1785 but now down to 700). BUN 20 and creatinine 0.72. Electrolytes are ok. At this poin t, I will attempt to feed him a clear liquid lunch and discharge him late this afternoon to the custody of [facility]. Exam Narrative Exam Narrative: exam deferred. Objective Objective Clinical Data: Abnormal lab results 05/28/20 05/28/20 05/29/20 Range/Units 03:00 14:45 07:00 RBC (4.36-5.78) 10^6/uL Hgb (13.5-17.5) g/dL Hct (40.0-50.0) % Potassium 3.1 L (3.5-5.1) mmol/L Chloride 110 H (98-107) mmol/L BUN 22 H 20 H (7-18) mg/dL Glucose 72 L (74-106) mg/dL Lactate 2.6 H* (0.6-1.4) mmol/L Calcium 8.1 L 7.3 L (8.5-10.1) mg/dL Creatine Kinase 1218 H 700 H (39-308) U/L 05/29/20 Range/Units 07:00 RBC 4.20 L (4.36-5.78) 10^6/uL Hgb 12.5 L (13.5-17.5) g/dL Hct 38.3 L (40.0-50.0) % Potassium (3.5-5.1) mmol/L Chloride (98-107) mmol/L BUN (7-18) mg/dL Glucose (74-106) mg/dL Lactate (0.6-1.4) mmol/L Calcium (8.5-10.1) mg/dL Creatine Kinase (39-308) U/L Vital Signs Temperature 37.2 C 05/29/20 10:00 Temperature Source Temporal Artery Scan 05/29/20 10:00 Pulse 79 05/29/20 10:00 Pulse 76 05/29/20 08:31 Respiratory Rate 13 05/29/20 10:00 Respiratory Effort Mechanically Ventilated 05/29/20 10:00 Respiratory Depth Normal 05/29/20 07:15 Respiratory Pattern Normal 05/29/20 07:15 Blood Pressure 140/85 05/29/20 10:00 Blood Pressure Mean 98 05/29/20 08:31 Blood Pressure Position Supine 05/29/20 03:54 Pulse Oximetry 97 05/29/20 08:31 Respiratory End-tidal CO2 36 05/29/20 07:31 Oxygen Delivery Method Mechanical Ventilator 05/29/20 07:15 Oxygen Flow Rate 0 05/29/20 07:15 Fraction of Inspired Oxygen (FIO2) 21 05/29/20 07:15 End Tidal Co2 54 05/28/20 02:30 Pain Level 0 05/29/20 03:54 Intake & Output 05/28/20 05/29/20 05/29/20 23:59 11:59 23:59 Intake Total 3976.572 / 5532.047 2234.690 / 2234.690 Output Total 570 / 1100 200 / 200 Balance 3406.572 / 4432.047 4.690 / 4.690 Intake: IV 3976.572 / 5532.047 2234.690 / 4.690 Output: Gastric Drainage 300 / 300 Oral 300 / 300 Urine 270 / 800 200 / 200 Other: Urine Color Light Arlen Brown Green Urine Appearance Clear Cloudy Comment indwelling bright-urine cloudy green indwelling bright-urine cloudy green Gastric Occult Blood Oral Negative Negative Laboratory Results WBC 5.97 10^3/uL (4.4-10.8) 05/29/20 07:00 RBC 4.20 10^6/uL (4.36-5.78) L 05/29/20 07:00 Hgb 12.5 g/dL (13.5-17.5) L 05/29/20 07:00 Hct 38.3 % (40.0-50.0) L 05/29/20 07:00 MCV 91.2 fL (80-95) 05/29/20 07:00 MCH 29.8 pg (27.0-33.0) 05/29/20 07:00 MCHC 32.6 % (32.0-36.0) 05/29/20 07:00 RDW 13.6 % (11.8-14.1) 05/29/20 07:00 Plt Count 132 10^3/uL (130-400) 05/29/20 07:00 MPV 10.0 fL (8.0-11.0) 05/29/20 07:00 Immature Gran % 0.3 05/28/20 03:00 Neutrophils % 73.7 05/28/20 03:00 Lymphocytes % 18.3 05/28/20 03:00 Monocytes % 7.1 05/28/20 03:00 Eosinophils % 0.3 05/28/20 03:00 Basophils % 0.3 05/28/20 03:00 Nucleated RBC % 0 % 05/28/20 03:00 Absolute Neutrophils 5.91 10^3/uL (1.2-6.7) 05/28/20 03:00 Absolute Lymphocytes 1.46 10^3/uL (1.2-3.4) 05/28/20 03:00 Absolute Monocytes 0.57 10^3/uL (0.1-0.8) 05/28/20 03:00 Absolute Eosinophils 0.02 10^3/uL (0.0-0.7) 05/28/20 03:00 Absolute Basophils 0.02 10^3/uL (0.0-0.2) 05/28/20 03:00 ESR 6 mm/hr (0-15) 05/28/20 03:00 PT 10.2 sec (9.3-11.0) 05/28/20 03:00 INR 1.0 (0.9-1.1) 05/28/20 03:00 APTT 23.4 sec (21.0-31.4) 05/28/20 03:00 ABG Sample Site Cancelled 05/29/20 05:35 ABG pH Cancelled 05/29/20 05:35 ABG pCO2 Cancelled 05/29/20 05:35 ABG pO2 Cancelled 05/29/20 05:35 ABG HCO3 Cancelled 05/29/20 05:35 ABG Total CO2 Cancelled 05/29/20 05:35 ABG O2 Saturation Cancelled 05/29/20 05:35 ABG Base Excess Cancelled 05/29/20 05:35 Oxygen Liter Flow Cancelled 05/29/20 05:35 FiO2 Cancelled 05/29/20 05:35 Sodium 141 mmol/L (136-145) 05/29/20 07:00 Potassium 4.0 mmol/L (3.5-5.1) D 05/29/20 07:00 Chloride 110 mmol/L (98-107) H 05/29/20 07:00 Carbon Dioxide 22.6 mmol/L (21.0-32.0) 05/29/20 07:00 Anion Gap 8.4 mmol/L (3-11) 05/29/20 07:00 BUN 20 mg/dL (7-18) H 05/29/20 07:00 Creatinine 0.72 mg/dL (0.70-1.30) 05/29/20 07:00 Estimated GFR/1.73 m2 >= 60.00 (mL/min/1.73m2) 05/29/20 07:00 Glucose 79 mg/dL (74-106) 05/29/20 07:00 Lactate 1.0 mmol/L (0.6-1.4) 05/28/20 08:38 Calcium 7.3 mg/dL (8.5-10.1) L 05/29/20 07:00 Total Bilirubin 0.7 mg/dL (0.2-1.0) 05/28/20 03:00 AST 69 U/L (15-37) H 05/28/20 03:00 ALT 69 U/L (16-63) H 05/28/20 03:00 Alkaline Phosphatase 54 U/L (46-116) 05/28/20 03:00 Creatine Kinase 700 U/L (39-308) H 05/29/20 07:00 Troponin I 0.07 ng/mL (<0.06) 05/28/20 12:01 C-Reactive Protein 0.17 mg/dL (0.0-0.3) 05/28/20 03:00 Total Protein 7.7 g/dL (6.4-8.2) 05/28/20 03:00 Albumin 4.1 g/dL (3.4-5.0) 05/28/20 03:00 TSH 1.05 uIU/mL (0.36-3.74) 05/28/20 03:00 Urine Color Yellow (Yellow) 05/28/20 04:21 Urine Clarity Clear (Clear) 05/28/20 04:21 Urine pH 7.0 (5-8) 05/28/20 04:21 Ur Specific [place] 1.025 (1.005-1.025) 05/28/20 04:21 Urine Protein 30 mg/dL (Negative) H 05/28/20 04:21 Urine Ketones 15 mg/dL (Negative) H 05/28/20 04:21 Urine Blood Negative (Negative) 05/28/20 04:21 Urine Nitrite Negative (Negative) 05/28/20 04:21 Urine Bilirubin Negative (Negative) 05/28/20 04:21 Urine Urobilinogen 0.2 EU/dL (Up TO 0.2) 05/28/20 04:21 Ur Leukocyte Esterase Negative (Negative) 05/28/20 04:21 Urine RBC Negative HPF (0-2) 05/28/20 04:21 Urine WBC 0-2 HPF (0-5) 05/28/20 04:21 Ur Epithelial Cells Negative HPF (Negative) 05/28/20 04:21 Urine Crystals Negative HPF (Negative) 05/28/20 04:21 Urine Bacteria Negative HPF (Negative) 05/28/20 04:21 Urine Mucus Trace (Negative) 05/28/20 04:21 Ur Culture Indicated? No 05/28/20 04:21 Urine Glucose Negative mg/dL (Negative) 05/28/20 04:21 Salicylates < 2.8 mg/dL (2.8-20.0) 05/28/20 03:00 Urine Opiates Screen Negative (Negative) 05/28/20 04:21 Urine Methadone Screen Negative (Negative) 05/28/20 04:21 Acetaminophen < 2 ug/mL (10-30) 05/28/20 03:00 Ur Barbiturates Screen Negative (Negative) 05/28/20 04:21 Ur Tricyclics Screen Negative (Negative) 05/28/20 04:21 Ur Amphetamines Screen Positive (Negative) A 05/28/20 04:21 U Benzodiazepines Scrn Positive (Negative) A 05/28/20 04:21 Urine Cocaine Screen Negative (Negative) 05/28/20 04:21 Ur THC Screen Negative (Negative) 05/28/20 04:21 Ethyl Alcohol < 3.0 mg/dL (<3) 05/28/20 03:00 COVID-19 PCR Negative (Negative) 05/28/20 04:10 Nasopharyn COVID-19 PCR Not Applicable 05/28/20 04:10 Ref Test Perform Site [facility] 05/28/20 04:10
--- NOTE | 2020-05-29 14:18 | NUR.NOTE ---
1130 Pt awokened with sternal rub as he was no responding to verbal or tactile stim. Pt slamming unshackled arm and leg against bed, very assaultive and violent behavior. Dr. Bautista at the bedside during this outburst. 1415 voided and spilled urinal- pericare with linen change provided. During this bed change, pt became self destructive and was hitting feet against the bed footboard, and tried to hit his head against the siderail. Crying and screaming in short outbursts, but is currently calm and oriented to general place.
--- NOTE | 2020-05-29 18:12 | W.PM.DS.N ---
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 CT scan of the head was negative. After being sedated and intubated patient was able to to be weaned from parenteral sedatives and successfully extubated. (2) Acute respiratory failure: Status: Resolved Asessment and Plan: Respiratory failure was felt to be secondary to benzodiazepines that were required to calm his agitation. Chest x-ray showed no acute pulmonary process. Once he was weaned off of the parenteral benzodiazepines and fentanyl patient was able to be extubated. Patient had no hypoxemia no hypercarbia. (3) Illicit drug use: Status: Acute Asessment and Plan: Patient was observed to have taken an overdose of methamphetamines possibly combined with synthetic opiates. However his urine drug screen was only positive for amphetamines and benzodiazepines. Patient is at risk for further illicit drug use. Patient will require close monitoring while incarcerated. He will need follow-up outpatient. (4) Rhabdomyolysis: Status: Resolved Asessment and Plan: Patient's rhabdomyolysis was improving with IV fluid hydration. His peak CK level was 1700 at the time of discharge his CK was down to 700. At this time it is felt that he no longer requires IV fluid hydration and with his normal BUN and creatinine is not at risk for acute kidney injury. It is recommended that he drink plenty of fluids. No further follow-up testing is needed Discharge Plan Disposition Patient Disposition: [facility] Condition: Improving Discharge Details Chief Complaint: OD/Poison Clinical Impression: Altered mental status, Obtundation, Acute respiratory failure, Illicit drug use Reason For Visit: CHANGE MENTAL STATUS, DRUG OD Admit Date/Time: 05/28/20 05:20 Admit Provider: Raffy High Attending Provider: Raffy High Primary Care Provider: None,None ED Provider: Manish [facility] Hospital Course Hospital Course: 44-year-old male who is brought to [facility] emergency department from [facility] due to acute decreased level of consciousness with respiratory failure. See admission H&P for details. In summary this patient had been arrested by [facility] police in [place], [place] and shortly after his arrest the patient had taken overdose with what is known as an 8 ball. Apparently this is a sling term for combination of cocaine and other substances. Patient became aggressively agitated and required emergency evaluation and was brought to the nearest facility at [facility] where he was treated with benzodiazepines to sedate him. I do not have the records from [facility] but apparently he was monitored in the emergency department for several hours before he was released. He reportedly had been walking under his own power when he was discharged from the emergency department. He was brought to [facility] and had been there shortly before he became somnolent and unresponsive with slowed respirations but never lost his pulse. He received Narcan and EMS was called and the patient was brought to [facility] emergency room. While in the emergency department he was intubated to protect his airway and was admitted to our intensive care unit on a mechanical ventilator and sedated with Versed drip as well as fentanyl drip and propofol drip. Patient had routine labs that demonstrated hypokalemia with a potassium down to 3.1 which was corrected and on the day of discharge his potassium was up to 4.0. His renal function was normal with a BUN of 20 creatinine 1.0 on admission on the day of discharge his BUN was 20 creatinine 0.72. He developed some mild rhabdomyolysis with a creatine kinase of 1785 which came down to 1218 and on the day of discharge was down to 700. Troponin levels were obtained and all were negative at levels of less than 0.05 and repeat levels of 0.07. EKG showed no ischemic changes. CBC was within normal limits. Urine toxicology screen was positive for benzodiazepines and amphetamines but blood alcohol level was less than 3.0 and his salicylate level is less than 2.8 and acetaminophen level less than 2. Urinalysis was remarkable for 30 mg/dL protein and 50 mg/dL ketones but otherwise was negative for bacteria or leukocytes or nitrites. Chest x-ray after intubation showed endotracheal tube placement was appropriate 6.5 cm above his reno. Lungs are well expanded cardiac size was normal. No infiltrates or effusions. CT of the abdomen chest and pelvis was performed and showed no acute injury of the chest abdomen or pelvis. CT of his head was also performed on admission and was read as normal. Follow-up chest x-ray was performed on the morning after admission and showed orogastric tube in the proximal stomach he had no lung consolidation changes. Endotracheal tube tip was 7 cm above the reno. He had no pneumothorax and no pleural effusions and no infiltrates. His sedation medications were consolidated and he was weaned off the Versed drip and was treated with a propofol drip and converted over to Precedex drip. These were weaned off by the morning of May 29, 2020 and he was successfully extubated. He was monitored throughout the day. Initially after extubation he was combative and somewhat delirious but throughout the day his confusion cleared although he would get agitated at times and combative with the nursing staff and the correctional officers. Nevertheless he was able to clearly express his wants and desires and answer questions appropriately to the nursing staff. It was felt that he was medically stable and did not require further hospitalization or medical treatment. He was discharged to the custody of the [facility] police to be remanded to [facility]. No further testing is required and no further medications are required. Post extubation he did have some hoarseness but was able to tolerate a liquid diet. It is expected that that hoarseness should resolve over the next couple days. Home Meds and New Rx's Prescriptions: No Action Unable to Obtain RF: 0 Discharge Instructions Instructions: Methamphetamine Abuse (DC) Activity:: Activity as Tolerated Equipment/Supplies:: No Equipment Needed Diet:: Normal Diet Discharge Orders Discharge Orders: Discharge Order (Routine); Ordered 05/29/20 Ordered By: Chadwick Bautista DS: Summary Status at Discharge Functional status at discharge: independent ambulation Overall status at discharge: patient is back to baseline Mental Status: mental status grossly normal Speech and Movement: speech and movement normal Mood: angry and irritable mood Affect: hostile Exam Narrative Exam Narrative: male who is awake and angry and combative at times and at other times he is is calm and resting closing his eyes. Psych Mental Status: mental status grossly normal Speech and Movement: speech and movement normal Mood: angry and irritable mood Affect: hostile DS: Data Vitals/I&O Vitals and I&O: Vital Signs Temperature 37.2 C 05/29/20 16:16 Temperature Source Temporal Artery Scan 05/29/20 16:16 Pulse 107 H 05/29/20 14:03 Pulse 112 H 05/29/20 14:04 Respiratory Rate 35 H 05/29/20 16:16 Respiratory Effort Non-Labored 05/29/20 16:16 Respiratory Depth Normal 05/29/20 16:16 Respiratory Pattern Normal 05/29/20 16:16 Blood Pressure 132/83 05/29/20 14:03 Blood Pressure Mean 93 05/29/20 14:03 Blood Pressure Position Supine 05/29/20 03:54 Pulse Oximetry 93 L 05/29/20 12:00 Respiratory End-tidal CO2 36 05/29/20 07:31 Oxygen Delivery Method Room Air 05/29/20 12:00 Oxygen Flow Rate 0 05/29/20 12:00 Fraction of Inspired Oxygen (FIO2) 21 05/29/20 07:15 End Tidal Co2 54 05/28/20 02:30 Pain Level 0 05/29/20 03:54 Intake & Output 05/28/20 05/29/20 05/29/20 23:59 11:59 23:59 Intake Total 3976.572 / 5532.047 2234.690 / 3324.690 1090 / 3324.690 Output Total 570 / 1100 200 / 1650 1450 / 1650 Balance 3406.572 / 4432.047 2034.690 / 1674.690 -360 / 1674.690 Intake: IV 3976.572 / 5532.047 2234.690 / 3234.690 1000 / 3234.690 Oral 90 / 90 Output: Gastric Drainage 300 / 300 Oral 300 / 300 Urine 270 / 800 200 / 1650 1450 / 1650 Other: Urine Color Light Arlen Brown Dark Arlen Green Urine Appearance Clear Cloudy Cloudy Urine Odor None Comment indwelling bright-urine cloudy green indwelling bright-urine cloudy green Voided x 2 this afternoon. Gastric Occult Blood Oral Negative Negative Voiding Methods Urinal Data Completed and Pending Labs on day of discharge: Labs from last 24 hours 05/29/20 05/29/20 05/29/20 07:00 07:00 05:35 WBC 5.97 RBC 4.20 L Hgb 12.5 L Hct 38.3 L MCV 91.2 MCH 29.8 MCHC 32.6 RDW 13.6 Plt Count 132 MPV 10.0 ABG Sample Site Cancelled ABG pH Cancelled ABG pCO2 Cancelled ABG pO2 Cancelled ABG HCO3 Cancelled ABG Total CO2 Cancelled ABG O2 Saturation Cancelled ABG Base Excess Cancelled Oxygen Liter Flow Cancelled FiO2 Cancelled Sodium 141 Potassium 4.0 D Chloride 110 H Carbon Dioxide 22.6 Anion Gap 8.4 BUN 20 H Creatinine 0.72 Estimated GFR/1.73 m2 >= 60.00 Glucose 79 Lactate Calcium 7.3 L Creatine Kinase 700 H Urine Myoglobin COVID-19 PCR Nasopharyn COVID-19 PCR Ref Test Perform Site 05/28/20 05/28/20 05/28/20 17:00 04:10 03:00 WBC RBC Hgb Hct MCV MCH MCHC RDW Plt Count MPV ABG Sample Site ABG pH ABG pCO2 ABG pO2 ABG HCO3 ABG Total CO2 ABG O2 Saturation ABG Base Excess Oxygen Liter Flow FiO2 Sodium Potassium Chloride Carbon Dioxide Anion Gap BUN Creatinine Estimated GFR/1.73 m2 Glucose Lactate 2.6 H* Calcium Creatine Kinase Urine Myoglobin Pending COVID-19 PCR Negative Nasopharyn COVID-19 PCR Not Applicable Ref Test [facility] Preliminary micro results at discharge 05/28/20 12:01 Blood Culture - Preliminary Blood NO GROWTH 24 HOURS 05/28/20 03:00 Blood Culture - Preliminary Blood NO GROWTH 24 HOURS COUNTS INCLUDE 234 BEDS AT THE [facility] Social History Smoking/Tobacco Use Status: Unknown Substance use type: amphetamines
[2020-05-30 19:57] LABS: Myoglobin, U <15 mcg/L (<=65)
[2020-06-01 11:17] LABS: Hepatitis C Ab w Rflx HCV PCR Negative (Negative)
[2020-06-01 11:29] LABS: HIV-1/2 Ag & Ab Screen Negative (Negative)
== END 2020-05-29 18:35 | disposition home or self-care (01) ==
LOC: ER 05:25 → ICU 05:42
PROVIDERS: Internal Medicine; Nurse Practitioner Adult Health; Admitting Provider General Practice; Emergency Provider Student in an Organized Health Care Education/Training Program; Visit Provider General Practice
DX: T43.621A Poisoning by amphetamines, accidental (unintentional), initial encounter (principal); T42.4X1A Poisoning by benzodiazepines, accidental (unintentional), initial encounter; R41.82 Altered mental status, unspecified; Z11.59 Encounter for screening for other viral diseases; M62.82 Rhabdomyolysis; J96.00 Acute respiratory failure, unspecified whether with hypoxia or hypercapnia; R40.2432 Glasgow coma scale score 3-8, at arrival to emergency department
CPT/HCPCS: 31500; 94002; 36410; 36415; 36680; 51702; 71045; 74177; 80048; 80053; 80307; 82550; 82805; 85027; 85652; 86803; 87040; 87389; 93005; 96361; 96365; 96366; 96368; 96375; 96376; 99222; 99232; 99233; 99238; 99291; J1650; U0003; 36600; 70450; 71260; 80320; 80329; 81003; 81015; 83605; 83874; 84443; 84484; 85025; 85610; 85730; 86140; 93010; 99217; J2310; J2704; J3010; J3490

== ENCOUNTER 2020-05-29 21:11 | Emergency (ER) | payer OTHER, SELFPAY ==
[2020-05-29 21:14] VITALS: BP 150/84; PULSE 76; RESP 14; TEMP 37.4; O2SAT 96
--- NOTE | 2020-05-29 21:15 | RT.EKG_ITS ---
APPROVED REPORT Exam: Resting ECG Patient Location: E HR:72 bpm ECG Measurements Heart Rate 72 AXIS MD 134 P 69 QRSd 101 QRS 66 QT 413 T 52 QTc 454 Conclusion Sinus rhythm...normal P axis, V-rate 60- 99, normal ST segments, no STEMI
--- NOTE | 2020-05-29 21:59 | NUR.NOTE ---
Nursing Note: [id number] Patient refusing to have blood drawn. Provider notified. Patient wakes to verbal stimuli. Corrections officers with patient.
[2020-05-29 22:00] VITALS: BP 160/85; PULSE 80; RESP 16; O2SAT 97
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
[2020-05-29 23:05] VITALS: BP 137/77; PULSE 84; RESP 16; O2SAT 95
--- NOTE | 2020-05-29 23:15 | NUR.NOTE ---
Nursing Note: Per Dr. Hall will not do urine testing.
--- NOTE | 2020-05-29 23:15 | NUR.NOTE ---
Nursing Note: Informed patient I was going to get him up and ambulate. HOB raised to 90 degrees and patient was instructed to swing his legs over the side of the bed. Patient made very poor effort but did do it. Assisted patient to stand , again very poor effort on patients part but was able to stand. Patient laid back down and went back to sleep.
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
[2020-05-29 23:38] VITALS: TEMP 37.3
== END 2020-05-29 23:45 | disposition home or self-care (01) ==
PROVIDERS: Emergency Provider Physician Assistant
DX: R41.82 Altered mental status, unspecified (principal); Z76.5 Malingerer [conscious simulation]; R45.6 Violent behavior
CPT/HCPCS: 80053; 82550; 93005; 99285; 85025; 93010; 99283

== ENCOUNTER 2020-05-31 17:24 | Observation (INO) | payer OTHER, SELFPAY ==
[2020-05-31] VITALS (45 sets, daily range): BP systolic 93–150; BP diastolic 67–96; PULSE 51–77; RESP 8–24; TEMP 36.8–37.2; O2SAT 95–100
--- NOTE | 2020-05-31 17:30 | RT.EKG_ITS ---
APPROVED REPORT Exam: Resting ECG Patient Location: E HR:61 bpm ECG Measurements Heart Rate 61 AXIS UT 130 P 81 QRSd 102 QRS 83 QT 405 T 75 QTc 408 Conclusion Sinus rhythm...normal P axis, V-rate 60- 99
--- NOTE | 2020-05-31 17:30 | DI.CT_ITS ---
EXAM: CT HEAD WO CLINICAL HISTORY: ams. TECHNIQUE: Imaging Protocol: Axial computed tomography images with coronal and sagittal reformatted images were created and reviewed COMPARISON: CT CT HEAD WO from 05/28/2020 FINDINGS: The ventricular system is normal in appearance. No evidence of acute intracranial hemorrhage, mass effect, or midline shift. The orbital structures are unremarkable. The temporal bone structures appear intact. Calvarium: Normal. Visualized Paranasal sinuses/Mastoids: Clear. IMPRESSION: Normal cranial CT. RADIATION DOSE DELIVERED: 715.28mGy.cm Total DLP 715.28mGy.cm Total DLP DATA REPOSITORY: All CT scans at this facility are submitted to the National Radiology Data Registry (NRDR) Dose Index Registry (DIR) with the [employer] ([employer]). RADIATION OPTIMIZATION: All CT scans at this facility use at least one of these dose optimization te chniques: automated exposure control; mA and/or kV adjustment per patient size (includes targeted exa ms where dose is matched to clinical indication); or iterative reconstruction.
--- NOTE | 2020-05-31 17:59 | ED.GENADUL_ITS ---
Discharge Plan Disposition Patient Disposition: OTHER Condition: Serious Discharge Details Chief Complaint: AMS/LOC Clinical Impression: Altered mental status Primary Care Provider: None,None ED Provider: Chadwick Matthews [place] Meds and New Rx's Prescriptions: No Action acetaminophen 325 mg Tablet 650 mg PO TID PRNRF: 0 clonidine HCl 0.1 mg Tablet 0.1 mg PO BID PRNRF: 0 hydroxyzine HCl 25 mg Tablet 25 mg PO TID PRNRF: 0 ibuprofen 200 mg Tablet 600 mg PO BID PRNRF: 0 ondansetron 8 mg Tablet,Disintegrating 8 mg PO BID RF: 0 Medical Decision Making 44-year-old gentleman presents in police custody from half-way for altered mental status. He has had recent ER visits, was intubated after a drug overdose, subsequently extubated and sent back to half-way, came in yesterday for altered mental status but seem to be more malingering. Although at this time he will not answer any of my questions, he does protect his airway, opens his eyes spontaneously, and does seem to follow minimal commands. Blood pressure 122/75, pulse 62, respirations of 12, temp 37.2, O2 sat 100% on room air. Difficult to know how much of this may be related to striking his head on the wall, recent overdose, metabolic abnormality, etc. versus psychiatric, malingering and/or secondary gains. I did discuss the case with Dr. Haynes who did personally evaluate the patient as well. Will obtain IV access, initiate a cardiac work-up as well as a head CT. Given he is in snf, has had waxing and waning altered mental status, I will obtain CT of his abdomen and pelvis to rule out potential foreign body as he could have a bag of drugs leaking in his system which certainly could explain his presentation. Laboratory values reveal a white count of 9.93 hemoglobin 13.9 hematocrit 41.0 platelet count 143. Electrolytes unremarkable. Creatinine 0.76 with estimated GFR greater than 60. Glucose 113. Calcium 8.4, magnesium 1.7, LFTs unremarkable. Troponin less than 0.05. Urinalysis nitrate negative, no leukoesterase. 10-20 high-power field white cells, negative bacteria. Tox screen is positive for benzodiazepines. Alcohol level less than 3. Imaging studies as below Patient is now awake, saying food. He was given a sandwich and drink, he tolerated them without difficulty. Laboratory values are unremarkable for obvious emergent process. Imaging reveals potential aspiration versus pneumonia however he appears well, nontoxic, afebrile, lungs clear to auscultation, O2 sats 100% on room air. I see no clear indication to obtain blood cultures. Given his confusing overall picture, we do not know his baseline, lack of resources at the half-way to care for him when he is altered, I will discuss the case with our hospitalist team for potential observation admission. I discussed the case with Dr. trever Griffith. We discussed with his recent intubation, question of aspiration versus pneumonia, he would recommend this initiating 1 g IV Rocephin now and he will be happy to admit the patient for observation. I will write holding orders. Medical Records Medical records reviewed: Yes I reviewed the patient's medical records. Imaging Data Radiologic Study: Attestation: I personally reviewed and interpreted this imaging study as follows: Imaging: X-Ray Radiologist's impression: Small linear opacity in the left mid lung zone, which could represent pneumonia versus atelectasis. Of note, a large left lower lobe groundglass opacity seen on the CT of the abdomen which is not well represented on the scan. Radiologic Study #2: Attestation: I personally reviewed and interpreted this imaging study as follows: Imaging: CT Scan Radiologist's impression: Head CT no acute intracranial abnormality. Radiologic Study #3: Attestation: I personally reviewed and interpreted this imaging study as follows: Imaging: CT Scan Radiologist's impression: CT abdomen and pelvis limited evaluation without evidence of large pathology in the abdomen or pelvis, the osseous structures are unremarkable. I received an addendum. Large left lower lobe groundglass opacities concerning for pneumonia versus aspiration. Correlate with clinical findings. Lab Data Lab results reviewed: Yes I reviewed the patient's lab results. Lab results narrative: 05/31/20 19:40 Urine - Reflex from Ua Urine Culture - Pending Laboratory Tests Range/Units 05/31/20 05/31/20 05/31/20 18:40 18:40 19:00 WBC (4.4-10.8) 10^3/uL 9.93 RBC (4.36-5.78) 10^6/uL 4.64 Hgb (13.5-17.5) g/dL 13.9 Hct (40.0-50.0) % 41.0 MCV (80-95) fL 88.4 MCH (27.0-33.0) pg 30.0 MCHC (32.0-36.0) % 33.9 RDW (11.8-14.1) % 12.8 Plt Count (130-400) 10^3/uL 143 MPV (8.0-11.0) fL 10.0 Immature Gran % 0.4 Neutrophils % 81.2 Lymphocytes % 12.5 Monocytes % 5.6 Eosinophils % 0.2 Basophils % 0.1 Nucleated RBC % % 0 Absolute Neutrophils (1.2-6.7) 10^3/uL 8.06 H Absolute Lymphocytes (1.2-3.4) 10^3/uL 1.24 Absolute Monocytes (0.1-0.8) 10^3/uL 0.56 Absolute Eosinophils (0.0-0.7) 10^3/uL 0.02 Absolute Basophils (0.0-0.2) 10^3/uL 0.01 Sodium (136-145) mmol/L 137 Potassium (3.5-5.1) mmol/L 4.0 Chloride (98-107) mmol/L 101 Carbon Dioxide (21.0-32.0) mmol/L 28.7 Anion Gap (3-11) mmol/L 7.3 BUN (7-18) mg/dL 19 H Creatinine (0.70-1.30) mg/dL 0.76 Estimated GFR/1.73 m2 (mL/min/1.73m2) >= 60.00 Glucose (74-106) mg/dL 113 H Calcium (8.5-10.1) mg/dL 8.4 L Magnesium (1.8-2.4) mg/dL 1.7 L Total Bilirubin (0.2-1.0) mg/dL 0.5 AST (15-37) U/L 29 ALT (16-63) U/L 46 Alkaline Phosphatase (46-116) U/L 49 Troponin I (<0.06) ng/mL < 0.05 Total Protein (6.4-8.2) g/dL 6.8 Albumin (3.4-5.0) g/dL 3.1 L TSH (0.36-3.74) uIU/mL 0.89 Urine Color (Yellow) Urine Clarity (Clear) Urine pH (5-8) Ur Specific Lockwood (1.005-1.025) Urine Protein (Negative) mg/dL Urine Ketones (Negative) mg/dL Urine Blood (Negative) Urine Nitrite (Negative) Urine Bilirubin (Negative) Urine Urobilinogen (Up TO 0.2) EU/dL Ur Leukocyte Esterase (Negative) Urine RBC (0-2) HPF Urine WBC (0-5) HPF Ur Epithelial Cells (Negative) HPF Urine Crystals (Negative) HPF Urine Bacteria (Negative) HPF Urine Casts (Negative) LPF Urine Mucus (Negative) Urine Other (Negative) Ur Culture Indicated? Urine Glucose (Negative) mg/dL Urine Opiates Screen (Negative) Negative Urine Methadone Screen (Negative) Negative Ur Barbiturates Screen (Negative) Negative Ur Tricyclics Screen (Negative) Negative Ur Amphetamines Screen (Negative) Negative U Benzodiazepines Scrn (Negative) Positive A Urine Cocaine Screen (Negative) Negative Ur THC Screen (Negative) Negative Ethyl Alcohol (<3) mg/dL < 3.0 Range/Units 05/31/20 19:40 WBC (4.4-10.8) 10^3/uL RBC (4.36-5.78) 10^6/uL Hgb (13.5-17.5) g/dL Hct (40.0-50.0) % MCV (80-95) fL MCH (27.0-33.0) pg MCHC (32.0-36.0) % RDW (11.8-14.1) % Plt Count (130-400) 10^3/uL MPV (8.0-11.0) fL Immature Gran % Neutrophils % Lymphocytes % Monocytes % Eosinophils % Basophils % Nucleated RBC % % Absolute Neutrophils (1.2-6.7) 10^3/uL Absolute Lymphocytes (1.2-3.4) 10^3/uL Absolute Monocytes (0.1-0.8) 10^3/uL Absolute Eosinophils (0.0-0.7) 10^3/uL Absolute Basophils (0.0-0.2) 10^3/uL Sodium (136-145) mmol/L Potassium (3.5-5.1) mmol/L Chloride (98-107) mmol/L Carbon Dioxide (21.0-32.0) mmol/L Anion Gap (3-11) mmol/L BUN (7-18) mg/dL Creatinine (0.70-1.30) mg/dL Estimated GFR/1.73 m2 (mL/min/1.73m2) Glucose (74-106) mg/dL Calcium (8.5-10.1) mg/dL Magnesium (1.8-2.4) mg/dL Total Bilirubin (0.2-1.0) mg/dL AST (15-37) U/L ALT (16-63) U/L Alkaline Phosphatase (46-116) U/L Troponin I (<0.06) ng/mL Total Protein (6.4-8.2) g/dL Albumin (3.4-5.0) g/dL TSH (0.36-3.74) uIU/mL Urine Color (Yellow) Yellow Urine Clarity (Clear) Clear Urine pH (5-8) 8.5 H Ur Specific [place]wood (1.005-1.025) 1.015 Urine Protein (Negative) mg/dL 30 H Urine Ketones (Negative) mg/dL Negative Urine Blood (Negative) Negative Urine Nitrite (Negative) Negative Urine Bilirubin (Negative) Negative Urine Urobilinogen (Up TO 0.2) EU/dL 2.0 H Ur Leukocyte Esterase (Negative) Negative Urine RBC (0-2) HPF 0-2 Urine WBC (0-5) HPF 10-20 H Ur Epithelial Cells (Negative) HPF Negative Urine Crystals (Negative) HPF Many amorphous Urine Bacteria (Negative) HPF Negative Urine Casts (Negative) LPF Negative Urine Mucus (Negative) Negative Urine Other (Negative) Negative Ur Culture Indicated? Yes Urine Glucose (Negative) mg/dL Negative Urine Opiates Screen (Negative) Urine Methadone Screen (Negative) Ur Barbiturates Screen (Negative) Ur Tricyclics Screen (Negative) Ur Amphetamines Screen (Negative) U Benzodiazepines Scrn (Negative) Urine Cocaine Screen (Negative) Ur THC Screen (Negative) Ethyl Alcohol (<3) mg/dL ECG Data Attestation: I personally reviewed and interpreted this ECG (s) as follows: Interpretation: EKG reviewed and interpreted by Dr. Campuzano, please see his official report. Obtained at . Sinus rhythm, ventricular rate 61. No STEMI HPI General Mode of arrival: EMS . Date/Time Provider Initiated Documentation: 05/31/20 17:39 . Limitations to Documentation: altered mental status . Information obtained by: police . HPI Narrative: This is a 44-year-old gentleman who presents in police custody from snf where he was in solitary confinement, for altered mental status. He was arrested on the , cleared at another hospital and subsequently went to half-way. He presented to our hospital on the for altered mental status, was intubated, the following day extubated, and discharged back to the half-way. He presented yesterday for altered mental status which eventually seemed to be more malingering in nature. He was witnessed on camera today around 4:30 PM standing, walking, eating a sandwich. Sometime within the next 15 minutes he appears. I was told by the officers that yesterday night he did strike his head on the wall multiple times. Was told by EMS that he does respond to verbal and tactile stimuli, occasionally opens his eyes and does say food. Other times he will not respond verbally whatsoever. He was given Narcan with no change in his mental status. Initially during my HPI patient is moaning but otherwise nonverbal, not answering any of my questions. Related Data Home Medications Medication Instructions Recorded Confirmed acetaminophen 650 mg PO TID PRN 05/31/20 05/31/20 clonidine HCl 0.1 mg PO BID PRN 05/31/20 05/31/20 hydroxyzine HCl 25 mg PO TID PRN 05/31/20 05/31/20 ibuprofen 600 mg PO BID PRN 05/31/20 05/31/20 ondansetron 8 mg PO BID 05/31/20 05/31/20 Allergies Allergy/AdvReac Type Severity Reaction Status Date / Time No Known Allergies Allergy Unverified 05/31/20 17:36 General Stated Complaint: AMS/LOC FLOR: 2 Review of Systems Unobtainable due to mental status FOR[facility]LY [facility] Social History Smoking/Tobacco Use Status: Never Alcohol Intake: never Drug use: Occasionally Substance use type: marijuana and amphetamines Exam Const General: no acute distress and in distress Orientation: alert and awake Limitations: altered mental status and behavioral limitations HENMT Head: normal to inspection, no palpable skull fracture, normocephalic and atraumatic Ears: external ears normal, TM's normal bilaterally and TM normal on the left General nose exam: external nose normal Face and sinus: normal facial exam Mouth: oral mucosae normal and moist mucous membranes Throat: posterior oropharynx normal and other (Gag reflex present) Eyes General: appearance normal, both eyes and all related structures Alignment and Position: alignment normal Periorbital: periorbital findings normal Eyelids: eyelids normal Conjunctivae: conjunctivae normal Sclera: sclerae normal Cornea: corneas normal Pupils: PERRL EOM: EOM intact bilaterally Direct ophthalmoscopy: normal light reflex Neck Neck: normal visual inspection, full ROM, no lymphadenopathy, no meningeal signs, trachea midline, supple and nontender Chest Chest: normal inspection of the chest and normal palpation of entire chest wall Resp Effort & Inspection: normal respiratory effort and able to speak in complete sentences Auscultation: diminished lung sounds bilaterally in the lower lung wolfe Cardio Rate: regular rate Rhythm: regular rhythm GI Inspection: normal to inspection Palpation: soft, no guarding, not rigid and nontender Auscultation: normal bowel sounds Back/Spine/Pelvis Back: No no CVA tenderness and No back tenderness Skin General skin exam: no rashes or lesions noted Neuro General: patient alert, patient awake, moves all extremities and CN's II-XI intact bilaterally Motor: muscle tone normal throughout, strength 5/5 throughout and no fasciculations Extrem Right upper extremity: normal to inspection, full ROM and normal capillary refill Left upper extremity: normal to inspection, full ROM and normal capillary refill Right lower extremity: normal to inspection, full ROM and normal capillary refill Left lower extremity: normal to inspection, full ROM and normal capillary refill Psych Attitude: not cooperative Course Vital Signs Vital signs: Vital Signs Temperature 37.2 C 05/31/20 17:24 Pulse 62 05/31/20 17:24 Respiratory Rate 8 L 05/31/20 17:24 Pulse Oximetry 100 05/31/20 17:24 Temperature 37.2 C 05/31/20 17:24 Temperature Source Skin 05/31/20 17:24 Pulse 62 05/31/20 17:24 Respiratory Rate 8 L 05/31/20 17:24 Blood Pressure Position Supine 05/31/20 17:24 Pulse Oximetry 100 05/31/20 17:24 Oxygen Delivery Method Room Air 05/31/20 17:24 Oxygen Flow Rate 0 05/31/20 17:24
--- NOTE | 2020-05-31 18:00 | DI.CT_ITS ---
EXAM: CT ABDOMEN PELVIS WO CLINICAL HISTORY: ams x 3 days, recent OD, in halfway, ? fb TECHNIQUE: COMPARISON: CT CT CHEST/ABD/PEL W from 05/28/2020 CR,XR XR PORTABLE CHEST AP POST LINE from 05/28/2020 FINDINGS: CT examination of the abdomen and pelvis was performed without contrast administration. There is alin y little abdominal fat. There is significant motion artifact. These factors all severely limits thi s scan. There is an area of apparent patchy consolidation of the left lung base, highly suspicious for pneumo kelsey, perhaps on an aspiration basis. Visualized liver, spleen, and pancreas are grossly unremarkable. No gross hydronephrosis or nephrolithiasis. Abdominal aorta of normal diameter. No gross abdominal or pelvic adenopathy. No gross evidence of bowel obstruction. Moderate constipation noted. IMPRESSION: Scan of very limited technical quality due to above listed factors. Findings consistent with left lower lobe pneumonia, possibly on an aspiration basis as the patient dai s a history of recent drug overdose. RADIATION DOSE DELIVERED: 1,251.83mGy.cm Total DLP
--- NOTE | 2020-05-31 18:42 | DI.VRAD_ITS ---
PROCEDURE INFORMATION: Exam: CT Head Without Contrast Exam date and time: 05/31/2020 5:41 PM Age: 44 years old Clinical indication: Alteration of consciousness; Other: Sudden AMS TECHNIQUE: Imaging protocol: Computed tomography of the head without contrast. COMPARISON: CT HEAD WO 05/28/2020 3:36 AM FINDINGS: Brain: Normal. No hemorrhage. Unremarkable white matter. No mass effect. Ventricles: Normal. No ventriculomegaly. Bones/joints: Unremarkable. No acute fracture. Sinuses: Visualized sinuses are unremarkable. No fluid levels. Mastoid air cells: Visualized mastoid air cells are well aerated. Soft tissues: Unremarkable. IMPRESSION: No acute intracranial abnormality. Dictated and Authenticated by: Dannielle Lee MD. Ordering:SENA Genao MD
--- NOTE | 2020-05-31 18:45 | DI.RAD_ITS ---
EXAM: XR PORTABLE CHEST AP CLINICAL HISTORY: ams TECHNIQUE: COMPARISON: CR,XR XR PORTABLE CHEST AP POST LINE from 05/28/2020 FINDINGS: Portable AP views of the chest were obtained. Previously noted ET tube and NG tube seen on May 28 have been removed. There are patchy and streaky left lower lobe intrapulmonary radiodensities in the retrocardiac portion of the left lower lobe which were not present on prior radiographs of May 28 and are consistent with areas of apparent consolidation identified on today's CT. Otherwise lungs appear grossly clear. Cardiac size within normal limits. No mediastinal contour abn ormality seen. IMPRESSION: Subtle left lower lobe pneumonia as noted on CT. No other significant findings. RADIATION DOSE DELIVERED: Total DLP
[2020-05-31 18:47] LABS: Abs Immature Grans 0.04 10^3/uL (0.0-0.06); Absolute Basophil Count 0.01 10^3/uL (0.0-0.2); Absolute Eosinophil Count 0.02 10^3/uL (0.0-0.7); Absolute Lymphocyte Count 1.24 10^3/uL (1.2-3.4); Absolute Monocyte Count 0.56 10^3/uL (0.1-0.8); Absolute Neutrophil Count 8.06 10^3/uL (1.2-6.7); Basophils % 0.1; Eosinophils % 0.2; HGB 13.9 g/dL (13.5-17.5); Immature Grans % 0.4; Lymphocytes % 12.5; MCHC 33.9 % (32.0-36.0); MCV 88.4 fL (80-95); Monocytes % 5.6; Neutrophils % 81.2; Nucleated RBC 0 %; Platelet Count 143 10^3/uL (130-400); RBC 4.64 10^6/uL (4.36-5.78); RDW 12.8 % (11.8-14.1); RDW-SD 41.2 fL; WBC 9.93 10^3/uL (4.4-10.8)
[2020-05-31] MEDS: Normal Saline 1,000 ML 1000 ML IV (18:50)
--- NOTE | 2020-05-31 19:01 | DI.VRAD_ITS ---
Addendum created by Dannielle Lee MD on 05/31/2020 7:13:48 PM EDT: Please note impression continued: 3. Large left lower lobe ground-glass opacity is concerning for pneumonia versus aspiration. Correlate with clinical findings. Initial report created on 05/31/2020 7:01:01 PM EDT: PROCEDURE INFORMATION: Exam: CT Abdomen And Pelvis Without Contrast Exam date and time: 05/31/2020 6:14 PM Age: 44 years old Clinical indication: Other: AMS TECHNIQUE: Imaging protocol: Computed tomography of the abdomen and pelvis without contrast. COMPARISON: No relevant prior studies available. FINDINGS: Limitations: There is significant streak artifact on this scan due to suboptimal patient positioning. This significantly limits evaluation. The lack of intravenous and oral contrast also limits evaluation of the solid organs. Lungs: There is a large patchy peripheral ground-glass opacity partially visualized in the left lower lobe, concerning for pneumonia versus aspiration. Dependent atelectasis noted in the right lung base. Liver: Normal. No mass. Gallbladder and bile ducts: No calcified stones identified. Pancreas: No definite ductal dilation. Spleen: No splenomegaly. Adrenals: No large mass identified. Kidneys and ureters: No hydronephrosis. Stomach and bowel: No suggestion of obstruction. Appendix: Not well evaluated. Intraperitoneal space: No large free air. Vasculature: No abdominal aortic aneurysm. Lymph nodes: No enlarged lymph nodes identified. Bladder: Unremarkable as visualized. Reproductive: Unremarkable as visualized. Bones/joints: Unremarkable. No acute fracture. Soft tissues: Unremarkable. IMPRESSION: 1. Limited evaluation without evidence of large pathology in the abdomen or pelvis. 2. The osseous structures are unremarkable. Dictated and Authenticated by: Dannielle Lee MD. Ordering:SENA Genao MD
[2020-05-31 19:11] LABS: ALT 46 U/L (16-63); AST 29 U/L (15-37); Albumin 3.1 g/dL (3.4-5.0); Alkaline Phosphatase 49 U/L (46-116); Anion Gap 7.3 mmol/L (3-11); BUN 19 mg/dL (7-18); Bilirubin, Total 0.5 mg/dL (0.2-1.0); CO2 28.7 mmol/L (21.0-32.0); CREATININE 0.76 mg/dL (0.70-1.30); Calcium 8.4 mg/dL (8.5-10.1); Chloride 101 mmol/L (98-107); Glucose 113 mg/dL (74-106); Magnesium 1.7 mg/dL (1.8-2.4); Sodium 137 mmol/L (136-145); TSH 0.89 uIU/mL (0.36-3.74); Total Protein 6.8 g/dL (6.4-8.2)
[2020-05-31 19:14] LABS: Troponin I < 0.05 ng/mL (<0.06)
--- NOTE | 2020-05-31 19:17 | DI.VRAD_ITS ---
PROCEDURE INFORMATION: Exam: XR Chest, 1 View Exam date and time: 05/31/2020 6:40 PM Age: 44 years old Clinical indication: AMS TECHNIQUE: Imaging protocol: XR of the chest Views: 1 view. COMPARISON: CR XR PORTABLE CHEST AP POST LINE 05/28/2020 4:48 AM FINDINGS: Lungs: There is a small linear opacity in the left midlung zone, which could represent pneumonia versus atelectasis. The ground-glass opacity seen in the left lung base on the CT of the abdomen is not well represented on this scan. Pleural space: Unremarkable. No pleural effusion. No pneumothorax. Heart/Mediastinum: Unremarkable. No cardiomegaly. Bones/joints: Unremarkable. IMPRESSION: 1. Small linear opacity in the left midlung zone, which could represent pneumonia versus atelectasis. 2. Of note, large left lower lobe ground-glass opacity seen on CT of the abdomen is not well represented on this scan. Dictated and Authenticated by: Dannielle Lee MD. Ordering:SENA Genao MD
[2020-05-31 19:59] LABS: ETHANOL BLOOD < 3.0 mg/dL (<3)
[2020-05-31 20:02] LABS: Bilirubin Negative (Negative); Blood Negative (Negative); Clarity Clear (Clear); Glucose Negative (Negative); Ketones Negative (Negative); Leukocyte Esterase Negative (Negative); Nitrite Negative (Negative); Specific Gravity 1.015 (1.005-1.025); pH 8.5 (5-8)
[2020-05-31 20:03] LABS: Bacteria Negative HPF (Negative); Epithelial Cells Negative HPF (Negative); Other Cells Negative (Negative); RBC 0-2 HPF (0-2)
[2020-05-31 20:04] LABS: C & S Indicated? Yes; Casts Negative LPF (Negative); Crystals Many Amorphous HPF (Negative); Mucus Negative (Negative)
[2020-05-31 20:15] LABS: *AMPHETAMINES SCREEN URINE Negative (Negative); *BARBITURATES SCREEN URINE Negative (Negative); *BENZODIAZEPINES SCREEN URINE POSITIVE (Negative); Cannabinoids THC Negative (Negative); Cocaine Screen,Urine Negative (Negative); METHADONE URINE SCREEN Negative (Negative); OPIATES URINE SCREEN Negative (Negative)
[2020-05-31 20:32] LABS: Tricyclic Antidepressants Negative (Negative)
--- NOTE | 2020-05-31 20:38 | NUR.NOTE ---
pt woke up . he stated that he was hungry and wanted some food . he did eat an entire sandwhich and spoke to the nurse when spoken to . when asked, he said that he has been on psyc meds in the past and has also been hospitalized.Nursing Note:
[2020-05-31] MEDS: cefTRIAXone 1 GM/50 ML BAG IVPB (21:22)
[2020-06-01 03:00] VITALS: BP 157/99; PULSE 58; RESP 16; TEMP 37.5; O2SAT 98
[2020-06-01 06:30] VITALS: BP 133/80; PULSE 62; RESP 16; TEMP 37.1; O2SAT 95
--- NOTE | 2020-06-01 06:32 | W.PM.HP.N ---
Date of service: 06/01/20 Time of Service: 06:32 Assessment and Plan Assessment and plan (1) Rhabdomyolysis: Status: Resolved Assessment and plan: Recently obtunded, then intubated. CK on 05/28/2020 1785 >1218. On 05/29 CK of 700. Will give 500ml NS bolus. Regular diet. (2) Obtundation: Status: Acute Assessment and plan: Resolved w/o any specific interventions. Psychiatric vs malingering? Had intentionally struck head against wall in skilled nursing but CT head was unremarkable. No metabolic abnormalities. + evidence of possible PNA on CT / aspiration? No fever or WBC count. Could be chemical pneumonitis from an aspiration event. He was given Rocephin x 1 in the ED. If clinically shows signs or symptoms consider steroid and/or continued antibiotics. Monitor. Psychiatric evaluation to be considered. (3) Illicit drug use: Status: Acute Assessment and plan: He states he takes suboxone and it's prescribed by Dr Almeida at the replaced by [facility] in [place]. Will request records. (4) Opacity of lung on imaging study: Status: Acute Assessment and plan: Developing PNA / aspiration / chemical pneumonitis from aspiration? Clinically w/o signs or symptoms of active pneumonia. WBC count normal; recheck this AM. Afebrile. Monitor. History of Present Illness History of Present Illness Chief Complaint: Lethargy Narrative: This is a 44 yo male currently in police custody with a h/o drug abuse on suboxone per patient, recent rhabdomyolysis and acute resp failure. On May 28 he was arrested and medically cleared at an outside hospital and was then jailed. On the he presented to [facility] with altered mental status, was intubated, then extubated the following day and discharged back to skilled nursing. Officers at the skilled nursing did endorse that he had purposefully struck his head against the wall the night before this admission but then was noted to be alert, walking, talking afterward. At appx 4:30PM on the day of admission he was witness, on camera, to be standing, walking, eating. Then sometime in the subsequent 15 mins he appeared obtunded. EMS called and he was reportedly, intermittently respodning to verbal and tactile stimuli and would open eyes had did verbalize food. Narcan administered w/o change in his status. CT head was unremarkable. WBC count normal at 9.93. Hgb 13.9. Electrolytes normal other than a low magnesium of 1.7. Creatinine 0.76. Glucose 113. Toxicology + for benzodiazapine. CT abd/pelvis to assess for possible a potential foreign body containing drugs that could have been leaking into his system was negative except for incidental finding of ground glass opacity in the L lower lung base. At time of my evaluation he stated he was hungry and thirsty. He endorsed wanting my meds, suboxone. He denied cough/sputum, F/C. No cough, resp distress noted overnight by staff. He is in 2 point restraints in the bed with 2 police officers in the room. Review of Systems All systems reviewed & are unremarkable except as noted in HPI and below PFSH Social History Smoking/Tobacco Use Status: Never Alcohol Intake: never Drug use: Occasionally Substance use type: marijuana and amphetamines Meds Home Medications and Allergies Home Medications Medication Instructions Recorded Confirmed Type acetaminophen 650 mg PO TID PRN 05/31/20 05/31/20 History clonidine HCl 0.1 mg PO BID PRN 05/31/20 05/31/20 History hydroxyzine HCl 25 mg PO TID PRN 05/31/20 05/31/20 History ibuprofen 600 mg PO BID PRN 05/31/20 05/31/20 History ondansetron 8 mg PO BID 05/31/20 05/31/20 History Allergies Allergy/AdvReac Type Severity Reaction Status Date / Time No Known Allergies Allergy Unverified 05/31/20 17:36 Exam Const General: cooperative and no acute distress Nutritional Appearance: average body habitus Eyes General: appearance normal, both eyes and all related structures Sclera: sclerae normal Resp Effort & Inspection: normal respiratory effort Auscultation: clear to auscultation bilaterally and diminished lung sounds Cardio Jugular venous pressure: no JVD Rate: regular rate Rhythm: regular rhythm Heart Sounds: S1 normal and S2 normal GI Inspection: normal to inspection Palpation: soft Auscultation: normal bowel sounds Neuro General: patient awake and moves all extremities Speech: other (speech is clear. Verbalizes with short answers.) Extrem General: no clubbing, cyanosis or edema Psych Appearance: grossly normal Speech and Movement: speech and movement normal Affect: blunted Attitude: cooperative and avoids eye contact Thought Content: normal Results Labs Result diagrams: 05/31/20 18:40 05/31/20 18:40 Labs: Laboratory Results - last 24 hr 05/31/20 05/31/20 05/31/20 18:40 18:40 19:00 WBC 9.93 RBC 4.64 Hgb 13.9 Hct 41.0 MCV 88.4 MCH 30.0 MCHC 33.9 RDW 12.8 Plt Count 143 MPV 10.0 Immature Gran % 0.4 Neutrophils % 81.2 Lymphocytes % 12.5 Monocytes % 5.6 Eosinophils % 0.2 Basophils % 0.1 Nucleated RBC % 0 Absolute Neutrophils 8.06 H Absolute Lymphocytes 1.24 Absolute Monocytes 0.56 Absolute Eosinophils 0.02 Absolute Basophils 0.01 Sodium 137 Potassium 4.0 Chloride 101 Carbon Dioxide 28.7 Anion Gap 7.3 BUN 19 H Creatinine 0.76 Estimated GFR/1.73 m2 >= 60.00 Glucose 113 H Calcium 8.4 L Magnesium 1.7 L Total Bilirubin 0.5 AST 29 ALT 46 Alkaline Phosphatase 49 Troponin I < 0.05 Total Protein 6.8 Albumin 3.1 L TSH 0.89 Urine Color Urine Clarity Urine pH Ur Specific [place] Urine Protein Urine Ketones Urine Blood Urine Nitrite Urine Bilirubin Urine Urobilinogen Ur Leukocyte Esterase Urine RBC Urine WBC Ur Epithelial Cells Urine Crystals Urine Bacteria Urine Casts Urine Mucus Urine Other Ur Culture Indicated? Urine Glucose Urine Opiates Screen Negative Urine Methadone Screen Negative Ur Barbiturates Screen Negative Ur Tricyclics Screen Negative Ur Amphetamines Screen Negative U Benzodiazepines Scrn Positive A Urine Cocaine Screen Negative Ur THC Screen Negative Ethyl Alcohol < 3.0 05/31/20 19:40 WBC RBC Hgb Hct MCV MCH MCHC RDW Plt Count MPV Immature Gran % Neutrophils % Lymphocytes % Monocytes % Eosinophils % Basophils % Nucleated RBC % Absolute Neutrophils Absolute Lymphocytes Absolute Monocytes Absolute Eosinophils Absolute Basophils Sodium Potassium Chloride Carbon Dioxide Anion Gap BUN Creatinine Estimated GFR/1.73 m2 Glucose Calcium Magnesium Total Bilirubin AST ALT Alkaline Phosphatase Troponin I Total Protein Albumin TSH Urine Color Yellow Urine Clarity Clear Urine pH 8.5 H Ur Specific [place] 1.015 Urine Protein 30 H Urine Ketones Negative Urine Blood Negative Urine Nitrite Negative Urine Bilirubin Negative Urine Urobilinogen 2.0 H Ur Leukocyte Esterase Negative Urine RBC 0-2 Urine WBC 10-20 H Ur Epithelial Cells Negative Urine Crystals Many amorphous Urine Bacteria Negative Urine Casts Negative Urine Mucus Negative Urine Other Negative Ur Culture Indicated? Yes Urine Glucose Negative Urine Opiates Screen Urine Methadone Screen Ur Barbiturates Screen Ur Tricyclics Screen Ur Amphetamines Screen U Benzodiazepines Scrn Urine Cocaine Screen Ur THC Screen Ethyl Alcohol Last Vital Signs Temp 37.1 C 06/01/20 06:30 Pulse 62 06/01/20 06:30 Resp 16 06/01/20 06:30 BP 233/80 H 06/01/20 06:30 Pulse Ox 95 06/01/20 06:30
--- NOTE | 2020-06-01 08:01 | PGE_ITS ---
Date of Service Date of service: 06/01/20 Time of Service: 08:01 Assessment and Plan Assessment and plan (1) Aspiration pneumonitis: Status: Acute Assessment and plan: Although the patient has some groundglass opacities at the left lower lobe patient is not having any fevers or hypoxemia. I am reluctant to start antibiotics with no clear evidence of a bacterial infection. I will check a repeat CBC along with a CRP and a procalcitonin level. If there is no leukocytosis or elevated inflammatory markers that I see no reason to start antibiotics at this point. (2) Altered mental status: Status: Acute Assessment and plan: Is not clear whether his altered mental status was malingering or truly he was obtunded from medications. But per my discussion with Allison, director of research center at [facility], it sounds like he truly was obtunded and required Narcan. If that is the case then he is being overmedicated with his Suboxone. She confirmed that his dose of Suboxone was 8 mg which reportedly is a decrease from what he was receiving when he was in [place] as an outpatient. I am recommending that his Suboxone dose be decreased to 4 mg daily. Patient only needs an adequate amount to prevent narcotic withdrawal. I am checking with our pharmacist to see if legally I can titrate down his dose while an inpatient. I will continue to observe him this morning and withhold his Suboxone until I get clarification. If he is showing no signs of need for continued inpatient management and I will discharge him back to the correctional facility and the medical equipment repairer can titrate his Suboxone dose. Qualifiers: Altered mental status type: somnolence Qualified Code(s): R40.0 - Somnolence (3) Malingering: Status: Acute Assessment and plan: As above (4) History of narcotic addiction: Status: Acute Assessment and plan: As above Subjective Subjective Interval history since last seen: See ER note and Dr. Griffith's admission H&P for details of the patient's presentation. This 44-year-old male narcotic abuser who is on Suboxone therapy was brought from [facility] because of decreased mental status. Patient had a recent hospitalization here at [facility] for similar presentation which he was obtunded to the point where he had to be intubated and placed on mechanical ventilation. I spoke with the director of research center from the [facility], Allison who reviewed yesterday's events. Patient received Suboxone 8 mg yesterday morning had been doing fine throughout the day and then around 4:30 in the afternoon was obtunded and reportedly unable to be aroused. He was given Narcan and transferred to [facility] emergency department. In the ER while he was lethargic he was arousable and able to speak with the ER staff and asking for food. He had a CT scan of his head to rule out intracranial trauma because the patient had a history of banging his head against the bed and the wall during his incarceration as well as while here at the hospital. CT of the head was negative. CT of abdomen and pelvis was performed out of concern that he may have been packing drugs in his GI tract which could have led to a prolonged release of sedatives. CT of the abdomen pelvis was unremarkable except that the upper cuts of the CT included the lower lung wolfe and showed some groundglass changes at the left lung base. Chest 2 Views showed some linear atelectasis versus infiltrate on his chest x-ray. However the patient has been afebrile and not hypoxemic although this morning does complain of some left-sided pleuritic pain. Patient was given a one-time dose of Rocephin in the emergency department by Dr. Geker did not continue antibiotics. At this time is felt to be a chemical pneumonitis probably from aspiration. This morning patient is asking for his Suboxone and I confirmed with Allison, director of research center at [facility], his Suboxone dose. Exam Narrative Exam Narrative: Patient is lying in bed with his left wrist handcuffed to the bed is left ankle handcuffed to the bed. He is lying there with his eyes closed and for the most part ignoring me however the correctional officers were able to get him to answer me. Patient is requesting his Suboxone. He does not appear to be in a respiratory distress he is not tachypneic and not using accessory respiratory muscles and is not requiring any oxygen. Lungs are clear to auscultation on the right and left side there is some fine rales at the left lateral base. No rhonchi or wheezing. Heart is regular rate and rhythm without murmur rub or gallop Chest wall is symmetrical no visible deformities no palpable tenderness. Abdomen soft nondistended normal active bowel sounds no palpable masses Objective Objective Clinical Data: Abnormal lab results 05/31/20 05/31/20 05/31/20 Range/Units 18:40 18:40 19:00 Absolute Neutrophils 8.06 H (1.2-6.7) 10^3/uL BUN 19 H (7-18) mg/dL Glucose 113 H (74-106) mg/dL Calcium 8.4 L (8.5-10.1) mg/dL Magnesium 1.7 L (1.8-2.4) mg/dL Albumin 3.1 L (3.4-5.0) g/dL Urine pH (5-8) Urine Protein (Negative) mg/dL Urine Urobilinogen (Up TO 0.2) EU/dL Urine WBC (0-5) HPF U Benzodiazepines Scrn Positive A (Negative) 05/31/20 Range/Units 19:40 Absolute Neutrophils (1.2-6.7) 10^3/uL BUN (7-18) mg/dL Glucose (74-106) mg/dL Calcium (8.5-10.1) mg/dL Magnesium (1.8-2.4) mg/dL Albumin (3.4-5.0) g/dL Urine pH 8.5 H (5-8) Urine Protein 30 H (Negative) mg/dL Urine Urobilinogen 2.0 H (Up TO 0.2) EU/dL Urine WBC 10-20 H (0-5) HPF U Benzodiazepines Scrn (Negative) Vital Signs Temperature 37.1 C 06/01/20 06:30 Temperature Source Tympanic 06/01/20 03:00 Pulse 62 06/01/20 06:30 Pulse Rhythm Regular 05/31/20 22:20 Pulse 56 L 05/31/20 21:40 Respiratory Rate 16 06/01/20 06:30 Respiratory Effort Non-Labored 05/31/20 22:20 Respiratory Depth Normal 05/31/20 22:20 Respiratory Pattern Normal 05/31/20 22:20 Blood Pressure 133/80 06/01/20 06:30 Blood Pressure Mean 79 05/31/20 21:31 Blood Pressure Position Supine 05/31/20 17:24 Pulse Oximetry 95 06/01/20 06:30 Oxygen Delivery Method Room Air 06/01/20 06:30 Oxygen Flow Rate 0 06/01/20 06:30 Pain Level 5 06/01/20 06:30 Comment 06/01/20 06:30 Intake & Output 05/31/20 05/31/20 06/01/20 11:59 23:59 11:59 Intake Total 1050 / 1050 Balance 1050 / 1050 Weight 69.1 kg Intake: IV 1050 / 1050 Other: Comment Pt voided into the toilet X2. Voiding Methods Toilet Laboratory Results WBC 9.93 10^3/uL (4.4-10.8) 05/31/20 18:40 RBC 4.64 10^6/uL (4.36-5.78) 05/31/20 18:40 Hgb 13.9 g/dL (13.5-17.5) 05/31/20 18:40 Hct 41.0 % (40.0-50.0) 05/31/20 18:40 MCV 88.4 fL (80-95) 05/31/20 18:40 MCH 30.0 pg (27.0-33.0) 05/31/20 18:40 MCHC 33.9 % (32.0-36.0) 05/31/20 18:40 RDW 12.8 % (11.8-14.1) 05/31/20 18:40 Plt Count 143 10^3/uL (130-400) 05/31/20 18:40 MPV 10.0 fL (8.0-11.0) 05/31/20 18:40 Immature Gran % 0.4 05/31/20 18:40 Neutrophils % 81.2 05/31/20 18:40 Lymphocytes % 12.5 05/31/20 18:40 Monocytes % 5.6 05/31/20 18:40 Eosinophils % 0.2 05/31/20 18:40 Basophils % 0.1 05/31/20 18:40 Nucleated RBC % 0 % 05/31/20 18:40 Absolute Neutrophils 8.06 10^3/uL (1.2-6.7) H 05/31/20 18:40 Absolute Lymphocytes 1.24 10^3/uL (1.2-3.4) 05/31/20 18:40 Absolute Monocytes 0.56 10^3/uL (0.1-0.8) 05/31/20 18:40 Absolute Eosinophils 0.02 10^3/uL (0.0-0.7) 05/31/20 18:40 Absolute Basophils 0.01 10^3/uL (0.0-0.2) 05/31/20 18:40 Sodium 137 mmol/L (136-145) 05/31/20 18:40 Potassium 4.0 mmol/L (3.5-5.1) 05/31/20 18:40 Chloride 101 mmol/L (98-107) 05/31/20 18:40 Carbon Dioxide 28.7 mmol/L (21.0-32.0) 05/31/20 18:40 Anion Gap 7.3 mmol/L (3-11) 05/31/20 18:40 BUN 19 mg/dL (7-18) H 05/31/20 18:40 Creatinine 0.76 mg/dL (0.70-1.30) 05/31/20 18:40 Estimated GFR/1.73 m2 >= 60.00 (mL/min/1.73m2) 05/31/20 18:40 Glucose 113 mg/dL (74-106) H 05/31/20 18:40 Calcium 8.4 mg/dL (8.5-10.1) L 05/31/20 18:40 Magnesium 1.7 mg/dL (1.8-2.4) L 05/31/20 18:40 Total Bilirubin 0.5 mg/dL (0.2-1.0) 05/31/20 18:40 AST 29 U/L (15-37) 05/31/20 18:40 ALT 46 U/L (16-63) 05/31/20 18:40 Alkaline Phosphatase 49 U/L (46-116) 05/31/20 18:40 Troponin I < 0.05 ng/mL (<0.06) 05/31/20 18:40 Total Protein 6.8 g/dL (6.4-8.2) 05/31/20 18:40 Albumin 3.1 g/dL (3.4-5.0) L 05/31/20 18:40 TSH 0.89 uIU/mL (0.36-3.74) 05/31/20 18:40 Urine Color Yellow (Yellow) 05/31/20 19:40 Urine Clarity Clear (Clear) 05/31/20 19:40 Urine pH 8.5 (5-8) H 05/31/20 19:40 Ur Specific [place] 1.015 (1.005-1.025) 05/31/20 19:40 Urine Protein 30 mg/dL (Negative) H 05/31/20 19:40 Urine Ketones Negative mg/dL (Negative) 05/31/20 19:40 Urine Blood Negative (Negative) 05/31/20 19:40 Urine Nitrite Negative (Negative) 05/31/20 19:40 Urine Bilirubin Negative (Negative) 05/31/20 19:40 Urine Urobilinogen 2.0 EU/dL (Up TO 0.2) H 05/31/20 19:40 Ur Leukocyte Esterase Negative (Negative) 05/31/20 19:40 Urine RBC 0-2 HPF (0-2) 05/31/20 19:40 Urine WBC 10-20 HPF (0-5) H 05/31/20 19:40 Ur Epithelial Cells Negative HPF (Negative) 05/31/20 19:40 Urine Crystals Many amorphous HPF (Negative) 05/31/20 19:40 Urine Bacteria Negative HPF (Negative) 05/31/20 19:40 Urine Casts Negative LPF (Negative) 05/31/20 19:40 Urine Mucus Negative (Negative) 05/31/20 19:40 Urine Other Negative (Negative) 05/31/20 19:40 Ur Culture Indicated? Yes 05/31/20 19:40 Urine Glucose Negative mg/dL (Negative) 05/31/20 19:40 Urine Opiates Screen Negative (Negative) 05/31/20 19:00 Urine Methadone Screen Negative (Negative) 05/31/20 19:00 Ur Barbiturates Screen Negative (Negative) 05/31/20 19:00 Ur Tricyclics Screen Negative (Negative) 05/31/20 19:00 Ur Amphetamines Screen Negative (Negative) 05/31/20 19:00 U Benzodiazepines Scrn Positive (Negative) A 05/31/20 19:00 Urine Cocaine Screen Negative (Negative) 05/31/20 19:00 Ur THC Screen Negative (Negative) 05/31/20 19:00 Ethyl Alcohol < 3.0 mg/dL (<3) 05/31/20 18:40
[2020-06-01] MEDS: Normal Saline Flush 10 ML SYR IVP (08:47)
[2020-06-01] MEDS: Magnesium Oxide 400 MG TAB PO (08:55)
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
--- NOTE | 2020-06-01 12:17 | PDOC.CMDIS ---
LACE Index Scoring Tool - Questions: Length of Stay (in days): 1 Acuity (Admit via E.D.?): Yes E.D. Visits: 3 - Answers: Total Score: 7 Risk of Readmission: Low Risk Care Management Discharge Reason for Hospitalization: Aspiration pneumonia, UTI Discharge Plan: Fahad will return to the Correctional facility via facility transport. The correctional facility will manage his further care needs. Patient/Family Education Needs: Review discharge instructions, discuss Ask Me Three.
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
[2020-06-01 14:52] LABS: COVID-19 RT-PCR UVMMC Result Negative (Negative)
== END 2020-06-01 11:28 | disposition home or self-care (01) ==
LOC: ER 21:50 → MS 22:00
PROVIDERS: Admitting Provider Family Medicine; Emergency Provider Physician Assistant; Visit Provider Family Medicine
DX: J69.0 Pneumonitis due to inhalation of food and vomit (principal); R40.1 Stupor; Z11.59 Encounter for screening for other viral diseases; F11.20 Opioid dependence, uncomplicated
CPT/HCPCS: 36415; 80053; 80307; 87077; 93005; 96361; 96374; 99219; 99226; 99238; 99285; U0003; 70450; 71045; 74176; 80320; 81003; 81015; 83735; 84443; 84484; 85025; 86140; 87086; 93010; 99217; 99236; 99284; G0378; J0696

== ENCOUNTER 2024-08-24 14:47 | Emergency (ER) | payer OTHER, SELFPAY ==
[2024-08-24 14:52] VITALS: BP 147/96; PULSE 101; TEMP 36.8; O2SAT 99
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
[2024-08-24 15:14] LABS: Abs Immature Grans 0.03 10^3/uL (0.0-0.06); Absolute Basophil Count 0.04 10^3/uL (0.0-0.2); Absolute Eosinophil Count 0.01 10^3/uL (0.0-0.7); Absolute Lymphocyte Count 1.15 10^3/uL (1.2-3.4); Absolute Monocyte Count 0.47 10^3/uL (0.1-0.8); Absolute Neutrophil Count 7.18 10^3/uL (1.2-6.7); Basophils % 0.5 %; Eosinophils % 0.1 %; HCT 43.5 % (40.0-50.0); Immature Grans % 0.3 %; MCH 29.2 pg (27.0-33.0); MCHC 34.5 % (32.0-36.0); MCV 85 fL (80-95); MPV 9.2 fL (8.0-11.0); Monocytes % 5.3 %; Neutrophils % 80.8 %; Platelet Count 226 10^3/uL (130-400); RBC 5.13 10^6/uL (4.36-5.78); RDW 13.2 % (11.8-14.1); RDW-SD 41.1 fL; WBC 8.88 10^3/uL (4.4-10.8)
[2024-08-24] MEDS: fentaNYL 100 MCG/2 ML VIAL 50 MCG IVP (15:15)
[2024-08-24 15:16] VITALS: BP 166/95; PULSE 78; RESP 24; TEMP 37.6; O2SAT 98
[2024-08-24 15:23] VITALS: BP 166/89; PULSE 78; RESP 24; TEMP 37.7; O2SAT 99
[2024-08-24 15:36] LABS: Anion Gap 8.1 mmol/L (3-11); BUN 21 mg/dL (7-18); CO2 28.9 mmol/L (21.0-32.0); CREATININE 1.1 mg/dL (0.70-1.30); Chloride 103 mmol/L (98-107); Estimated GFR 82.81 (mL/min/1.73m2); Glucose 106 mg/dL (74-106); Potassium 3.8 mmol/L (3.5-5.1); Sodium 140 mmol/L (136-145)
[2024-08-24] MEDS: Midazolam 2 MG/2 ML VIAL 3 MG IVP (16:06)
[2024-08-24] MEDS: Omnipaque 350 MG/ML 100 ML BTL IJ (16:19)
[2024-08-24] MEDS: Normal Saline - Diluent 50 ML VIAL IJ (16:20)
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
[2024-08-24] MEDS: Ibuprofen 600 MG TAB PO (17:19)
[2024-08-24] MEDS: Acetaminophen 500 MG TAB 1000 MG PO (17:19)
[2024-08-24 17:25] VITALS: BP 114/78; PULSE 71; RESP 16; TEMP 36.8; O2SAT 96
== END 2024-08-24 17:25 | disposition home or self-care (01) ==
PROVIDERS: Emergency Provider Emergency Medicine
DX: R10.9 Unspecified abdominal pain (principal); R06.02 Shortness of breath; Y04.0XXA Assault by unarmed brawl or fight, initial encounter; Y93.89 Activity, other specified
CPT/HCPCS: 74177; 80048; 99285; 70450; 71260; 85025; 99284; J2250; J3010; J3490

== ENCOUNTER 2024-08-25 12:04 | Observation (INO) | payer OTHER, SELFPAY ==
[2024-08-25] VITALS (87 sets, daily range): BP systolic 142–189; BP diastolic 75–123; PULSE 51–112; RESP 8–29; TEMP 36.6–36.9; O2SAT 87–100
--- NOTE | 2024-08-25 12:00 | RT.EKG_ITS ---
APPROVED REPORT Exam: Resting ECG Reason for Exam: Seizures Patient Location: E HR:72 bpm ECG Measurements Heart Rate 72 AXIS WV 137 P 75 QRSd 100 QRS 60 QT 382 T 42 QTc 418 Conclusion Sinus rhythm, rate 72 No interval abnormalities No STEMI
--- NOTE | 2024-08-25 12:15 | DI.RAD_ITS ---
Exam(s) XR PORTABLE CHEST AP EXAM: XR PORTABLE CHEST AP CLINICAL HISTORY: seizure. TECHNIQUE: 2D digital imaging was performed. COMPARISON: CR,XR XR PORTABLE CHEST AP from 05/31/2020 FINDINGS: Single AP portable view. Heart size is upper normal. The mediastinum is not widened. Lungs are clear. No infiltrates nor obvious pleural effusions. IMPRESSION: No acute pulmonary findings on this single AP portable view of the chest. DATA REPOSITORY: RADIATION DOSE DELIVERED:
--- NOTE | 2024-08-25 12:15 | DI.CT_ITS ---
Exam(s) CT HEAD WO EXAM: CT HEAD WO CLINICAL HISTORY: ams, unresponsive. TECHNIQUE: Imaging Protocol: Axial computed tomography images with coronal and sagittal reformatted images were created and reviewed COMPARISON: CT CT HEAD WO from 08/24/2024 FINDINGS: Ventricles and Extra axial spaces: Normal in size and morphology for the patient's age. Hemorrhage: None. Cerebral parenchyma: No evidence of acute infarct or mass. Midline shift: None. Brainstem/Cerebellum: Normal. Calvarium: Normal. Visualized Paranasal sinuses:Clear. Mastoids: Clear. Soft Tissues: Unremarkable. ORBITS: Unremarkable. PITUITARY: Not enlarged. IMPRESSION: No acute intracranial process. RADIATION DOSE DELIVERED: Total DLP DATA REPOSITORY: All CT scans at this facility are submitted to the National Radiology Data Registry (NRDR) Dose Index Registry (DIR) with the [employer] (ACR). RADIATION OPTIMIZATION: All CT scans at this facility use at least one of these dose optimization te chniques: automated exposure control; mA and/or kV adjustment per patient size (includes targeted exa ms where dose is matched to clinical indication); or iterative reconstruction.
[2024-08-25] MEDS: levETIRAcetam 1,000 MG in Normal Saline 100 ML 400 MG IVPB ×2 (12:33→17:52)
[2024-08-25 12:39] LABS: BE (Venous) 3 mmol/L (-2-3); HCO3 (Venous) 29 mmol/L (23-28); O2 Sat (Venous) 61 %; TCO2 (Venous) 25 mmol/L (24-29); pCO2 (Venous) 49 mmHg (41-51); pH (Venous) 7.37 (7.31-7.41); pO2 (Venous) 33 mmHg
[2024-08-25 12:40] LABS: Abs Immature Grans 0.02 10^3/uL (0.0-0.06); Absolute Basophil Count 0.02 10^3/uL (0.0-0.2); Absolute Eosinophil Count 0.01 10^3/uL (0.0-0.7); Absolute Lymphocyte Count 1.26 10^3/uL (1.2-3.4); Absolute Monocyte Count 0.43 10^3/uL (0.1-0.8); Absolute Neutrophil Count 6.19 10^3/uL (1.2-6.7); Basophils % 0.3 %; Eosinophils % 0.1 %; HCT 51.2 % (40.0-50.0); Immature Grans % 0.3 %; Lymphocytes % 15.9 %; MCH 29.1 pg (27.0-33.0); MCHC 33.2 % (32.0-36.0); MCV 88 fL (80-95); MPV 8.9 fL (8.0-11.0); Monocytes % 5.4 %; Platelet Count 216 10^3/uL (130-400); RBC 5.85 10^6/uL (4.36-5.78); RDW 13.3 % (11.8-14.1); WBC 7.93 10^3/uL (4.4-10.8)
[2024-08-25 13:13] LABS: Anion Gap 9.5 mmol/L (3-11); BUN 29 mg/dL (7-18); CO2 28.5 mmol/L (21.0-32.0); CREATININE 1.1 mg/dL (0.70-1.30); Calcium 9.2 mg/dL (8.5-10.1); Chloride 102 mmol/L (98-107); Estimated GFR 82.81 (mL/min/1.73m2); Glucose 97 mg/dL (74-106); Magnesium 2.1 mg/dL (1.8-2.4); Potassium 3.7 mmol/L (3.5-5.1); Sodium 140 mmol/L (136-145); TSH (W/Ref FT4) 0.51 uIU/mL (0.36-3.74); Troponin I 45 ng/L (<or=76)
[2024-08-25 13:18] LABS: ETHANOL BLOOD < 3.0 mg/dL (<10)
[2024-08-25 14:01] LABS: Troponin I 41 ng/L (<or=76)
[2024-08-25] MEDS: LORazepam 2 MG/ML VIAL 1 MG IVP (14:35)
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
[2024-08-25 18:06] LABS: ALT 49 U/L (16-63); AST 51 U/L (15-37); Albumin 3.7 g/dL (3.4-5.0); Alkaline Phosphatase 66 U/L (46-116); Bilirubin, Total 1.03 mg/dL (0.2-1.0); Total Protein 7.7 g/dL (6.4-8.2)
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
[2024-08-25 20:05] LABS: Bilirubin Small (Negative); Blood Negative (Negative); Clarity Clear (Clear); Glucose Negative (Negative); Ketones 15 mg/dL (Negative); Leukocyte Esterase Negative (Negative); Nitrite Negative (Negative); Specific Gravity >= 1.030 (1.005-1.025); Urobilinogen 0.2 mg/dL (Up to 0.2); pH 5.5 (5-8)
[2024-08-25 20:18] LABS: Bacteria Few HPF (Negative); Epithelial Cells Rare HPF (Negative); RBC 0-2 HPF (0-2)
[2024-08-25 20:19] LABS: C & S Indicated? No; Mucus Moderate (Negative)
[2024-08-25 20:25] LABS: *AMPHETAMINES SCREEN URINE Positive (Negative); *BARBITURATES SCREEN URINE Negative (Negative); *BENZODIAZEPINES SCREEN URINE Positive (Negative); Cannabinoids THC Negative (Negative); Cocaine Screen,Urine Negative (Negative); METHADONE URINE SCREEN Negative (Negative); OPIATES URINE SCREEN Negative (Negative)
[2024-08-25 20:26] LABS: Tricyclic Antidepressants Negative (Negative)
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
[2024-08-25] MEDS: Normal Saline 1,000 ML 100 ML IV (22:02)
[2024-08-26] VITALS (75 sets, daily range): BP systolic 121–158; BP diastolic 68–101; PULSE 48–93; RESP 12–29; TEMP 37–37.6; O2SAT 96–100
--- NOTE | 2024-08-26 | DI.MRI_ITS ---
Exam(s) MR BRAIN WO/W EXAM: MR BRAIN WO/W CLINICAL HISTORY: atypical spells. TECHNIQUE: Multiplanar multisequence MRI of the brain was performed. CONTRAST MATERIAL: IV Contrast: 16 ML of Dotarem contrast administered. COMPARISON: CT CT HEAD WO from 08/25/2024 FINDINGS: Exam is limited by patient motion and patient positioning.. VENTRICLES AND EXTRA AXIAL SPACES: Normal in size and morphology for the patient's age. HEMORRHAGE: None. CEREBRAL PARENCHYMA: No focus of restricted diffusion to suggest acute infarct. No space-occupying le vivian identified. There are few tiny scattered high signal lesions in the white matter likely reflect ing microvascular changes. BRAINSTEM/CEREBELLUM: Normal. CALVARIUM: Normal. ENHANCEMENT: No suspicious enhancement identified. VISUALIZED PARANASAL SINUSES/MASTOIDS: Clear. Orbits: Unremarkable. Pituitary: Not enlarged. Vasculature: Normal flow voids. IMPRESSION: Exam limited by motion. No evidence of infarct, mass or abnormal enhancement. DATA REPOSITORY:
[2024-08-26] MEDS: Normal Saline 1,000 ML 100 ML IV (08:15)
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
--- NOTE | 2024-08-26 11:14 | NUR.NOTE ---
Nursing Note: This Nurse observed seizure-like activity in patient consisting of marked head and spine flexion, contraction of arms and hands and sometimes knees, at times moaning respirations and quivering of hands at the following times: 8:10 duration < 1 minute 9:15 duration < 1 minute 9:50 duration < 1 minute 10:00 duration < 1 minute 10:06 duration < 1 minute 10:08 duration < 1 minute 10:38 duration < 1 minute 10:50 duration greater than 2 minutes 11:00 less than 1 minute 11:28 less than 1 minute MD notified and witnessed a couple of the episodes. No incontinence, do drooling, tongue biting, teeth clenching noted. Pt remains unresponsive during and prior the episodes despite vigorous sternal rub applied to chest by MD and RN on different occasions. 02 saturations remain in the 90s throughout episode. HR accelerates and BP rises during episodes.
[2024-08-26] MEDS: Gadoterate meglumine 20 ML SYRINGE IVP (14:29)
[2024-08-26] MEDS: Lidocaine 2% Jelly 6 ML SYR ×2 (14:55→16:05)
--- NOTE | 2024-08-26 17:23 | PGE_ITS ---
Date of Service Date of service: 08/26/24 Time of Service: 17:23 Assessment and Plan Assessment and plan (1) Spell of abnormal behavior: Status: Acute Assessment and plan: -Conflicting reports between long term and ER regarding characteristics of these spells, -Agree with admitting physician that spells that have been observed and described physical exam did not completely appear to be normal seizure-like activity However, MRI was obtained did not show any acute intracranial findings -Patient did have a EEG earlier in the day, will await read in order to confirm that observed movements are in fact not seizure-like in nature -Continuing twice daily Depakote 500 mg as recommended by [facility] neurology Subjective Subjective Interval history since last seen: Patient minimally responsive, does not appear to be in any acute distress in between intermittent episodes of what appears to be behavioral like episodes of intentional movements (please see physical exam for further details). Exam Narrative Exam Narrative: Disheveled gentleman laying in bed in no acute distress, lungs clear to auscultation bilaterally, soft, nontender not, nondistended, heart regular rhythm, patient has been observed having periods of what appeared to be posturing and decorticate posturing of the upper extremities though without any rigidity as patient was able to have his upper extremities moved to relaxed position with minimal resistance, also during these episodes patient had completely normal vital signs with normal heart rate, and oxygen saturation, PERRLA Objective Last Vital Signs Temp 99.1 F 08/26/24 12:00 Pulse 71 08/26/24 15:01 Resp 16 08/26/24 15:01 BP 152/89 H 08/26/24 15:01 Pulse Ox 99 08/26/24 14:24 Laboratory Results - last 24 hr 08/25/24 08/25/24 08/25/24 13:35 17:23 19:43 Total Bilirubin 1.03 H Cancelled Conjugated Bilirubin Cancelled AST 51 H Cancelled ALT 49 Cancelled Alkaline Phosphatase 66 Cancelled Total Protein 7.7 Cancelled Albumin 3.7 Cancelled Urine Color Yellow Urine Clarity Clear Urine pH 5.5 Ur Specific [place] >= 1.030 H Urine Protein 30 H Urine Ketones 15 H Urine Blood Negative Urine Nitrite Negative Urine Bilirubin Small H Urine Urobilinogen 0.2 Ur Leukocyte Esterase Negative Urine RBC 0-2 Urine WBC 3-5 Ur Epithelial Cells Rare Urine Crystals Not Applicable Urine Bacteria Few Urine Mucus Moderate Ur Culture Indicated? No Urine Glucose Negative Urine Opiates Screen Negative Urine Methadone Screen Negative Ur Barbiturates Screen Negative Ur Tricyclics Screen Negative Ur Amphetamines Screen Positive A U Benzodiazepines Scrn Positive A Urine Cocaine Screen Negative Ur THC Screen Negative Time Spent with Patient Time Spent with Patient: >50 minutes Time was spent: preparing to see the patient(eg.review tests), obtaining and/or reviewing separately otained hiistory, ordering medications,tests, procedures, referring, communicating with other health caregiver assisted living, indepentently interpreting results, counseling the patient and care coordination
[2024-08-26] MEDS: Enoxaparin 40 MG/0.4 ML SYR SC (19:07)
--- NOTE | 2024-08-26 20:07 | PDOC.EEG ---
Neurology EEG EEG: [facility] Department of Neurology INPATIENT EEG REPORT Date of Recordin08/26/24 Interpreting Physician: Dr. Joanna Downey Reason for study: Mr. Potter is a 49 year-old admitted with AMS and ?seizure like activity. Current Medications: Current Medications Divalproex Sodium (Divalproex 500 Mg Tabec) 500 mg PO BID [facility] Last Admin: 08/26/24 08:20 Dose: Not Given Enoxaparin Sodium (Enoxaparin 40 Mg/0.4 Ml Syr) 40 mg SC Q24H [facility] Last Admin: 08/26/24 19:07 Dose: 40 mg METHODS: A 21 channel digitized electroencephalogram was performed in the [facility] Med/Surg Floor or ICU. The 10/20 international system of electrode placement was used and bipolar and referential electrode montages were recorded. In addition to EEG the patient was monitored for EKG and lateral/vertical eye movements. Activation procedures of photic stimulation and hyperventilation were performed if applicable. Video was used during activation procedures and during events where applicable. The duration of the recording was 30 minutes. DESCRIPTION OF EEG: The patient was noted to be awake, drowsy, and asleep during the recording. During maximal wakefulness a 10-Hz posterior background rhythm was present which was well-modulated, symmetrical, reactive to eye opening, and of moderate voltage. With eye opening the background activity changed to a low voltage mixture of alpha, beta, and occasional theta range frequencies. Faster frequencies were present in the bilateral anterior head regions. There was a normal anterior-posterior voltage gradient. During drowsiness, there was attenuation of the posterior dominant background rhythm and vertex waves. Stage II sleep was present with symmetrical sleep spindles, K-complexes, and vertex waves. During the recording, patient had varying activity including head movements, arm and hand movements (predominantly the R arm), moaning, non-responsiveness , and eyelid blinking all of which were associated with a normal awake EEG pattern. Activating Procedures: Photic stimulation was performed which produced no posterior driving response. Hyperventilation was not performed. EKG: EKG revealed normal sinus rhythm. INTERPRETATION: This EEG is normal during the awake and sleep states as well as during photic stimulation. During the recording, patient had varying activity including head movements, arm and hand movements (predominantly the R arm), moaning, non-responsiveness , and eyelid blinking all of which were associated with a normal awake EEG pattern. PRIOR EEG: none CLINICAL CORRELATION: No focal regions of cerebral dysfunction or epileptiform activity was present. None of the observed behaviors were associated with seizure activity. Epilepsy remains a clinical diagnosis and a normal EEG does not rule out epilepsy. Clinical correlation is advised. Joanna Downey MD Date of service: 08/26/24
[2024-08-26] MEDS: Divalproex 500 MG TABEC PO (20:17)
[2024-08-27] VITALS (13 sets, daily range): BP systolic 124–148; BP diastolic 74–112; PULSE 63–95; RESP 12–17; TEMP 36.8–37.1; O2SAT 96–97
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
[2024-08-27] MEDS: Divalproex 500 MG TABEC PO (08:46)
--- NOTE | 2024-08-27 09:03 | PDOC.CMDIS ---
Date of service: 08/27/24 Time of Service: 09:03 LACE Index Scoring Tool Questions: Length of Stay (in days): 2 Was the patient admitted via the E.D.?: Yes E.D. Visits: 2 Answers: Total Score: 7 Risk of Readmission: Low Risk Care Management Discharge Plan Reason for Hospitalization: Presented to the ER with concerns for seizure-like activity. Head CT , MRI, EEG showed no seizure-like activity. Discharge Plan: Fahad is discharged back to the correctional facility with a new order for divalproex. He will f/u with the facility provider and continue per his plan of care. He will transport in the facility vehicle accompanied by facility guards. Patient/Family Education Needs: Review of discharge instructions, activity, limitations, new medication, and follow up plan. Discuss Ask me 3. SDOH Health Related Social Needs: No Data to Display
== END 2024-08-27 09:20 | disposition home or self-care (01) ==
LOC: ER 16:03 → MS 20:37 → ICU 21:15
PROVIDERS: Physician Assistant; Admitting Provider General Practice; Emergency Provider Physician Assistant; Visit Provider General Practice
DX: R29.818 Other symptoms and signs involving the nervous system (principal); F11.20 Opioid dependence, uncomplicated; F17.210 Nicotine dependence, cigarettes, uncomplicated; Z78.1 Physical restraint status; F15.90 Other stimulant use, unspecified, uncomplicated; F12.90 Cannabis use, unspecified, uncomplicated; Z79.899 Other long term (current) drug therapy
CPT/HCPCS: 00123; 36415; 36416; 70553; 80048; 80076; 80307; 82805; 82962; 93005; 95819; 96365; 96366; 96372; 96375; 96376; 99285; J1650; 70450; 71045; 80320; 81003; 81015; 83735; 84443; 84484; 85025; 93010; 99222; 99233; 99239; J1953; J2060